=== PATIENT | male | born 1955 | race Caucasian/White ===

== ENCOUNTER 2018-06-26 07:38 | Day surgery (SDC) | payer OTHER ==
[~2018-06-26 07:38] MED LIST: PROPOFOL 200 MG/20 ML VIAL As Ordered
== END 2018-06-26 09:35 | disposition home or self-care (01) ==
LOC: M OPP 07:38
DX: Z12.11 Encounter for screening for malignant neoplasm of colon (principal); Z85.038 Personal history of other malignant neoplasm of large intestine; D12.3 Benign neoplasm of transverse colon; Z98.0 Intestinal bypass and anastomosis status; I10 Essential (primary) hypertension; E78.5 Hyperlipidemia, unspecified; E11.9 Type 2 diabetes mellitus without complications; Z85.46 Personal history of malignant neoplasm of prostate; Z87.891 Personal history of nicotine dependence; Z88.0 Allergy status to penicillin; Z88.1 Allergy status to other antibiotic agents; Z79.899 Other long term (current) drug therapy; Z79.82 Long term (current) use of aspirin; Z79.84 Long term (current) use of oral hypoglycemic drugs; Z80.1 Family history of malignant neoplasm of trachea, bronchus and lung
CPT/HCPCS: 45385

== ENCOUNTER 2018-08-29 06:50 | Day surgery (SDC) | payer OTHER ==
[~2018-08-29] VITALS: Ht 175.3 cm; Wt 73.0 kg
[~2018-08-29 06:50] MED LIST changes: +AMLO5TAB6 PO; +ASPI81TA85 PO; +ATOR40TA75 PO; +CETI10TA PO; +ERGO500014 PO; +GLIP10TA6 PO; +JANU50TA8 PO; +MICA40TA PO; -PROPOFOL 200 MG/20 ML VIAL As Ordered; +TELM1TAB37 PO
[2018-08-29] MEDS ORDERED: SIMETHICONE 40MG/0.6ML DROPS 30ML As Ordered ONE (07:02)
[2018-08-29] MEDS ORDERED: LIDOCAINE 2% INJ 100 MG/5 ML SDV (FOR ANES.) As Ordered ONE (07:30)
[2018-08-29] MEDS ORDERED: NS 1,000 ML IV ONE (07:30)
[2018-08-29] MEDS ORDERED: PROPOFOL 200 MG/20 ML VIAL As Ordered ONE (07:30)
--- NOTE | 2018-08-29 07:46 | ROOR ---
Patient Name: Blaze Guzman Procedure Date: 08/29/2018 7:27 AM Date of : 1955 Age: 63 Room: [facility] Gender: Male Note Status: Finalized Procedure: Colonoscopy Indications: High risk colon cancer surveillance: Personal history of colonic polyps, Personal history of malignant neoplasm of the colon Providers: Kris POTTER MD Referring MD: CIERA VANG MD Requesting Provider: Medicines: Monitored Anesthesia Care Complications: No immediate complications. Procedure: Pre-Anesthesia Assessment: - The heart rate, respiratory rate, oxygen saturations, blood pressure, adequacy of pulmonary ventilation, and response to care were monitored throughout the procedure. The Colonoscope was introduced through the anus and advanced to the cecum, identified by appendiceal orifice and ileocecal valve. The colonoscopy was performed with difficulty due to inadequate bowel prep. The patient tolerated the procedure well. The quality of the bowel preparation was poor. Findings: The perianal and digital rectal examinations were normal. Four semi-sessile polyps were found in the sigmoid colon, splenic flexure and ascending colon. The polyps were 4 to 6 mm in size. These polyps were removed with a cold snare. Resection and retrieval were complete. The colon is grossly normal without large tumors or obstructing lesions. Unable to perform adequate detail examination. Small lesions may have been missed. Impression: - Preparation of the colon was poor. The colon is grossly normal without large tumors or obstructing lesions. Unable to perform adequate detail examination. Small lesions may have been missed. - Four 4 to 6 mm polyps in the sigmoid colon, at the splenic flexure and in the ascending colon, removed with a cold snare. Resected and retrieved. Recommendation: - Repeat colonoscopy at the next available appointment because the bowel preparation was poor. - My office will call you within the next few days to reschedule a colonoscopy with alternate colon preparation. Kris Potter MD Kris POTTER MD 08/29/2018 7:45:51 AM This report has been signed electronically. Number of Addenda: 0 Note Initiated On: 08/29/2018 7:27 AM Estimated Blood Loss: Estimated blood loss: none.
[2018-08-29 08:05] VITALS: BP 104/56
== END 2018-08-29 08:16 | disposition home or self-care (01) ==
LOC: M OPP 06:50
PROVIDERS: ATTEND Internal Medicine Gastroenterology
DX: Z86.010 Personal history of colon polyps (principal); D12.5 Benign neoplasm of sigmoid colon; D12.3 Benign neoplasm of transverse colon; D12.2 Benign neoplasm of ascending colon; Z85.038 Personal history of other malignant neoplasm of large intestine; Z79.82 Long term (current) use of aspirin; Z79.899 Other long term (current) drug therapy; Z90.49 Acquired absence of other specified parts of digestive tract

== ENCOUNTER 2018-12-05 11:27 | Day surgery (SDC) | payer OTHER ==
[~2018-12-05] VITALS: Ht 175.3 cm; Wt 73.9 kg
[~2018-12-05 11:27] MED LIST changes: -ERGO500014 PO; +VITA500045 PO
[2018-12-05] MEDS ORDERED: NS 1,000 ML IV ONE (12:15)
[2018-12-05] MEDS ORDERED: PROPOFOL 200 MG/20 ML VIAL As Ordered ONE ×2 (13:00→13:02)
[2018-12-05] MEDS ORDERED: LIDOCAINE 2% INJ 100 MG/5 ML SDV (FOR ANES.) As Ordered ONE (13:00)
[2018-12-05] MEDS ORDERED: GLUCAGON FOR INJ 1 MG VIAL (J1610) As Ordered ONE (13:11)
--- NOTE | 2018-12-05 13:32 | ROOR ---
Patient Name: Blaze Guzman Procedure Date: 12/05/2018 12:43 PM Date of : 1955 Age: 63 Room: [facility] Gender: Male Note Status: Finalized Procedure: Colonoscopy Indications: High risk colon cancer surveillance: Personal history of colonic polyps, High risk colon cancer surveillance: Personal history of colon cancer Providers: Kris POTTER MD Referring MD: CIERA VANG MD Requesting Provider: Medicines: Monitored Anesthesia Care Complications: No immediate complications. Procedure: Pre-Anesthesia Assessment: - The heart rate, respiratory rate, oxygen saturations, blood pressure, adequacy of pulmonary ventilation, and response to care were monitored throughout the procedure. The Colonoscope was introduced through the anus and advanced to the terminal ileum, with identification of the appendiceal orifice and IC valve. The colonoscopy was performed without difficulty. The patient tolerated the procedure well. The quality of the bowel preparation was good. Findings: The perianal and digital rectal examinations were normal. Three sessile polyps were found in the ascending colon and cecum. The polyps were 4 to 5 mm in size. These polyps were removed with a cold snare. Resection and retrieval were complete. Three semi-pedunculated polyps were found in the sigmoid colon. The polyps were 5 to 10 mm in size. These polyps were removed with a hot snare. Resection and retrieval were complete. To prevent bleeding after the polypectomy, two hemostatic clips were successfully placed. There was no bleeding at the end of the procedure. Mild sigmoid diverticulosis and small internal hemorrhoids. There was evidence of a prior end-to-end colo-colonic anastomosis in the sigmoid colon. This was characterized by healthy appearing mucosa. Impression: - Three 4 to 5 mm polyps in the ascending colon and in the cecum, removed with a cold snare. Resected and retrieved. - Three 5 to 10 mm polyps in the sigmoid colon, removed with a hot snare. Resected and retrieved. Clips were placed. - Mild sigmoid diverticulosis and small internal hemorrhoids. - End-to-end colo-colonic anastomosis, characterized by healthy appearing mucosa. Recommendation: - Repeat colonoscopy in 3 years for surveillance. - This time (3rd attempt) the colon prep was good. For your next colonoscopy we will use the same regimen. Kris Potter MD Kris POTTER MD 12/05/2018 1:31:39 PM Electronically signed by Kris POTTER MD Number of Addenda: 0 Note Initiated On: 12/05/2018 12:43 PM Estimated Blood Loss: Estimated blood loss: none.
[2018-12-05 14:02] VITALS: BP 151/70
== END 2018-12-05 14:13 | disposition home or self-care (01) ==
LOC: M OPP 11:27
PROVIDERS: ATTEND Internal Medicine Gastroenterology
DX: Z86.010 Personal history of colon polyps (principal); Z85.038 Personal history of other malignant neoplasm of large intestine; D12.2 Benign neoplasm of ascending colon; D12.0 Benign neoplasm of cecum; D12.5 Benign neoplasm of sigmoid colon; Z98.0 Intestinal bypass and anastomosis status; K57.30 Diverticulosis of large intestine without perforation or abscess without bleeding; K64.8 Other hemorrhoids; Z79.899 Other long term (current) drug therapy; Z88.0 Allergy status to penicillin; Z87.891 Personal history of nicotine dependence; Z08 Encounter for follow-up examination after completed treatment for malignant neoplasm
CPT/HCPCS: 45385; 88305; J1610

== ENCOUNTER 2019-10-29 06:22 | Inpatient (IN) | payer OTHER ==
[~2019-10-29] VITALS: Ht 175.3 cm; Wt 69.0 kg
[2019-10-29] MEDS ORDERED: NS 500 ML IV ONE (07:15)
[2019-10-29 07:39] LABS: BASO # 0.1 10^3/uL (0.0-0.2); BASO % 0.7 % (0.0-1.0); EOS # 0.5 10^3/uL (0.0-0.5); EOS % 4.7 % (0.0-3.0); HEMATOCRIT 42.1 % (42.0-52.0); HEMOGLOBIN 13.4 g/dl (13.5-17.5); LYMPH # 1.8 10^3/uL (1.5-5.0); LYMPH % 18.7 % (24.0-44.0); MEAN CORPUSCULAR HEMOGLOBIN 27.2 pg (27.0-33.0); MEAN CORPUSCULAR HGB CONC 31.8 g/dl (32.0-36.5); MEAN CORPUSCULAR VOLUME 85.4 fl (80.0-96.0); MONO # 0.7 10^3/uL (0.0-0.8); MONO % 6.9 % (0.0-5.0); NEUTROPHILS # 6.6 10^3/uL (1.5-8.5); NEUTROPHILS % 68.6 % (36.0-66.0); PLATELET COUNT, AUTOMATED 248 10^3/uL (150-450); RED BLOOD COUNT 4.93 10^6/uL (4.30-6.10); WHITE BLOOD COUNT 9.6 10^3/uL (4.0-10.0)
--- NOTE | 2019-10-29 08:31 | REP ---
Clinical: Facial droop and altered mental status . Comparison: None . Findings: The ventricles, sulci, and cisterns are normal in position and appearance. Stevens-white differentiation is maintained. No acute intracranial hemorrhage, mass/mass effect, pathology or trauma/injury. No evidence for acute infarction. No extra-axial fluid collection. Calvarium is intact. Paranasal sinuses and mastoid air cells are clear. Impression: Normal noncontrast head CT. No evidence for acute intracranial pathology or trauma/injury. Electronically Signed by Matt La MD 10/29/2019 08:23 A
[2019-10-29] MEDS: KCL 10MEQ IN D5/0.45NS 1000ML 1,000 ML IV SCH ×2 (09:56→21:08)
[2019-10-29 09:58] LABS: HEMOGLOBIN A1c 8.4 %
--- NOTE | 2019-10-29 10:49 | HPEPDOC ---
[facility] Medical History & Physical Date of Admission Oct 29, 2019 Date of Service: Oct 29, 2019 History and Physical CHIEF COMPLAINT: altered mental status, facial droop HISTORY OF PRESENT ILLNESS: 64 yo male brought in by EMS for altered mental status, facial droop. woke up this morning and heard choking sounds, went to investigate, and noted her had a left facial droop, with altered mental status. EMS was called, and patient was found to by hypoglycemic. Patient states he skipped dinner last night, went to sleep, and woke up to find an IV in his arm, with EMS around his bed. No other recollection. He denied any other symptoms. He states he is non-compliant with dietary restrictions, and it is not clear if he is compliant with medications. PAST MEDICAL HISTORY: #HTN #DM #prostate CA s/p resection - 2007 - at [facility] #colon CA s/p resection - 2004 - recent colonoscopy 2018 Dr. Potter was WNL as per patient PAST SURGICAL HISTORY: #prostate CA s/p resection - 2007 - at [facility] #colon CA s/p resection - 2004 - recent colonoscopy 2018 Dr. Potter was WNL as per patient ALLERGIES: Please see below. REVIEW OF SYSTEMS: Negative except as per H&P. HOME MEDICATIONS: Please see below. PHYSICAL EXAMINATION: VITAL SIGNS: See below General: NAD, lying comfortably in bed HEENT: NC/AT, EOMI, PERRL Lungs: CTA B/L Heart: +S1S2, RRR Abd: soft, NT, +BS Ext: no edema Neuro: no gross focal deficits, sensation intact throughout strength 5/5 LABORATORY DATA: See below. MICROBIOLOGY: Please see below. ASSESSMENT: 64 yo male with PMHx of prostate/colon cancer, HTN, DM for AMS and left facial droop, found to be hypoglycemic, symptoms resolved upon presentation to ED. #hypoglycemia - continue with D5 for now - FS ac/hs #AMS - likely secondary to hypoglycemia #focal neuro deficits - r/o CVA - MRI/MRA brain pending - echo pending - check lipid panel - neuro c/s #HTN - 2 gram sodium diet, continue home meds including ARB #DM - as above #DVT prophylaxis Vital Signs Vital Signs Date Time Temp Pulse Resp B/P (MAP) Pulse Ox O2 Delivery O2 Flow Rate FiO2 10/29/19 07:35 96.5 87 18 123/68 (86) 97 Room Air Laboratory Data Labs 24H Laboratory Tests 2 10/29/19 06:40: Bedside Glucose (Misc Panel) 148H 10/29/19 07:30: Estimated Mean Plasma Glucose 194H, Hemoglobin A1c 8.4 10/29/19 07:31: Immature Granulocyte % (Auto) 0.4, Neutrophils (%) (Auto) 68.6H, Lymphocytes (%) (Auto) 18.7L, Monocytes (%) (Auto) 6.9H, Eosinophils (%) (Auto) 4.7H, Basophils (%) (Auto) 0.7, Neutrophils # (Auto) 6.6, Lymphocytes # (Auto) 1.8, Monocytes # (Auto) 0.7, Eosinophils # (Auto) 0.5, Basophils # (Auto) 0.1, Nucleated Red Blo od Cells % (auto) 0.0 10/29/19 07:32: POC Glucose (Misc Panel) 116H, POC Sodium (Misc Panel) 142, POC Potassium (Misc Panel) 3.8, POC Chloride (Misc Panel) 104, POC Total CO2 (Misc Panel) 25.0, POC Blood Urea Nitrogen (Misc Panel 10, POC Ionized Calcium (Misc Panel) 4.8, POC Creatinine (Misc Panel) 1.0, POC Hematocrit (Misc Panel) 41.0 10/29/19 08:23: Bedside Glucose (Misc Panel) 68L 10/29/19 09:20: Bedside Glucose (Misc Panel) 59L 10/29/19 10:22: Bedside Glucose (Misc Panel) 89 CBC/BMP Laboratory Tests 10/29/19 07:31 Home Medications Scheduled Amlodipine Besylate (Amlodipine Besylate) 5 Mg Tab, 5 MG PO QHS Aspirin (Aspir 81) 81 Mg Tab, 81 MG PO QHS for pain Atorvastatin Calcium (Atorvastatin Calcium) 40 Mg Tab, 40 MG PO QHS Cetirizine HCl (Cetirizine HCl) 10 Mg Tab, 10 MG PO QHS Ergocalciferol (Vitamin D2) (Vitamin D2) 50,000 Units Cap, 50,000 UNITS PO QWEEK saturdays Glipizide (Glipizide) 10 Mg Tab, 40 MG PO QHS change in dose from 10mg xl daily 09/29/19 Sitagliptin Phos/Metformin HCl (Janumet 50-1,000 mg Tablet) 1 Tab Tab, 1 TAB PO BID Telmisartan (Telmisartan) 80 Mg Tab, 80 MG PO QHS Valacyclovir HCl (Valtrex) 500 Mg Tablet, 500 MG PO DAILY Allergies Coded Allergies: Penicillins (Verified Allergy, Intermediate, RASH, 12/03/18) erythromycin base (Verified Adverse Reaction, Mild, N/V, 12/03/18) A-FIB/CHADSVASC A-FIB History Current/History of A-Fib/PAF?: No IJM BECKER MD Oct 29, 2019 10:49
[2019-10-29] MEDS ORDERED: VITA50005 PO (10:58)
[2019-10-29] MEDS ORDERED: VALT500T PO (11:01)
[2019-10-29 11:40] LABS: ALBUMIN 3.6 GM/DL (3.2-5.2); ALT/SGPT 28 U/L (12-78); BILIRUBIN,TOTAL 0.7 MG/DL (0.2-1.0); BLOOD UREA NITROGEN 11 MG/DL (7-18); CALCIUM LEVEL 9.4 MG/DL (8.8-10.2); CARBON DIOXIDE LEVEL 29 MEQ/L (21-32); CHLORIDE LEVEL 108 MEQ/L (98-107); CREATININE FOR GFR 1.15 MG/DL (0.70-1.30); GLOMERULAR FILTRATION RATE > 60.0 (>49); GLUCOSE, FASTING 110 MG/DL (70-100); POTASSIUM SERUM 3.7 MEQ/L (3.5-5.1); SODIUM LEVEL 140 MEQ/L (136-145); TOTAL PROTEIN 7.7 GM/DL (6.4-8.2)
[2019-10-29 13:22] VITALS: BP 134/76
[2019-10-29] MEDS ORDERED: ASPIRIN 81 MG ENTERIC TAB PO STA (14:21)
[2019-10-29] MEDS ORDERED: ATORVASTATIN 20 MG TAB PO ONE (14:30)
[2019-10-29 15:14] LABS: CK-MB VALUE MASS < 1.0 NG/ML (<3.6); CPK CREATINE PHOSPHOKINASE 88 U/L (39-308); MB/CK RELATIVE INDEX 1.14 (< OR =4); TROPONIN I < 0.02 NG/ML (< 0.10)
--- NOTE | 2019-10-29 15:41 | REP ---
Clinical: Transient ischemic attack . Technique: Stevens scale and color Doppler evaluation using linear high frequency transducer Findings: Two-dimensional stevens scale and color images demonstrate mild bilateral atheromatous plaquing with normal laminar flow and no appreciable narrowing. Color Doppler interrogation demonstrates normal arterial wave patterns and velocities with significant spectral broadening. Normal flow direction is appreciated in the bilateral vertebral arteries. RIGHT (cm/s) LEFT (cm/s) ICA peak systolic velocity 65.9 76.7 ICA diastolic velocity 19.3 24.6 ECA peak systolic velocity 75.1 70.8 CCA peak systolic velocity 95.7 98.8 ICA/CCA ratio 1.1 1.3 Impression: No hemodynamically significant areas of narrowing or stenosis appreciated. Based on set standards narrowing falls within the less than 50% range. Electronically Signed by Matt La MD 10/29/2019 03:32 P
[2019-10-29 16:00] VITALS: BP 143/71
[2019-10-29] MEDS: HEPARIN SOD (PORCINE) 5000 UNITS/ML VIAL (J1644 PER 1000UNITS) SC SCH ×2 (16:30→21:08)
--- NOTE | 2019-10-29 16:36 | REP ---
MRI brain without contrast: History: CVA. Comparison: Head CT study is from earlier this date. Technique: Axial and sagittal imaging planes are utilized for T1 and T2-weighted scans. Sequences include spin-echo, fast spin echo, FLAIR, and diffusion weighted sequences. MRI findings: No bony calvarial lesion is seen. Craniocervical junction and upper cervical cord are normal in appearance. There is mucosal thickening affecting the ethmoid air cells bilaterally. Mild mucosal thickening is seen affecting the maxillary sinuses bilaterally. There is no evidence of intracranial hemorrhage. No acute infarction is seen on diffusion weighted scans. On FLAIR and turbo spin echo T2-weighted scans there are some periventricular T2 hyperintense areas consistent with small vessel atherosclerotic changes. There is a high T2 low T1 signal intensity area in the right basal ganglia which most likely reflects a dilated perivascular space. An old lacunar infarct in the basal ganglia on the right is a possibility. This does not appear to be acute. Exam is otherwise unremarkable. Impression: 1 cm low T1 high T2 signal intensity focus in the right basal ganglia most consistent with normal variant dilated perivascular space versus less likely old lacunar infarct right basal ganglia. No acute infarction is seen. No evidence of hemorrhage is seen. Mild small vessel changes. Otherwise negative. Electronically Signed by Kevon Alvarez MD 10/29/2019 05:06 P
--- NOTE | 2019-10-29 16:38 | REP ---
MRI brain without contrast: History: CVA. Technique: 3-D [id number] MR angiography of the brain is acquired in the usual fashion and maximal intensity projection images were generated in rotational format about the vertical and horizontal axes. In addition, source axial T1-weighted images are viewed in cine mode. MR angiographic findings: The left distal vertebral artery is dominant and unremarkable. Basilar artery is normal in appearance. The right distal vertebral artery is quite small and the terminate in the pica. This is a normal variant. Posterior cerebral and superior cerebellar vessels are normal and symmetric. There is a persistent origin of the left posterior cerebral artery also a normal variant of no clinical significance. The distal internal carotid arteries are unremarkable. There is no evidence of gonzalez aneurysm. No arteriovenous malformation is seen. Anterior middle cerebral arteries are unremarkable. Impression: Persistent origin left posterior cerebral artery. Left dominant vertebral arteries. Otherwise unremarkable MR angiography the brain. Electronically Signed by Kevon Alvarez MD 10/29/2019 05:07 P
[2019-10-29 17:24] LABS: INR 1.03; PROTHROMBIN TIME 13.2 SECONDS (11.8-14.0)
[2019-10-29 17:25] LABS: PARTIAL THROMBOPLASTIN TIME 35.4 SECONDS (25.0-38.4)
[2019-10-29 20:00] VITALS: BP 122/71
--- NOTE | 2019-10-29 20:20 | ECHO ---
DATE OF PROCEDURE: 10/29/2019 PATIENT LOCATION: Room 3213 REFERRING PROVIDER: Dr. Angelito Taylor REASON FOR THE ECHOCARDIOGRAM: CVA. 2D MEASUREMENTS: IVS: 1.2 cm LV: 6.0 cm LVPW: 1.2 cm LA: 3.6 cm Aorta: 3.3 CM IVC: 1.98 cm DOPPLER MEASUREMENTS: Peak velocity across the aortic valve: 1.4 meters per second. Peak velocity across the LVOT: 1.1 meters per second. Mitral E: 0.70, Mitral A: 0.93 with a ratio of 0.8. 2D COMMENTS: 1. Mildly dilated left ventricle with normal left ventricular wall thickness but with a severely depressed global left ventricular systolic function. The entire anteroseptum and apex are both akinetic and dyskinetic. Otherwise there was mild global hypokinesis. The myocardium seems to be abbie at the level of the inferior wall and the lateral wall. The estimated global left ventricular systolic function is 25-30%. 2. Normal left atrium. Normal right atrium and right ventricle. 3. The atrial septum appeared to be normal without evidence of defect or shunt. 4. Normal aortic root. 5. Trace pericardial effusion noted, no evidence of cardiac tamponade. 6. Mildly calcified aortic valve with normal leaflet excursion. Mildly calcified mitral annulus with normal anterior mitral valve leaflet motion. Normal tricuspid valve and pulmonic valve. The proximal pulmonary artery branches were not well visualized. 7. The inferior vena cava is borderline enlarged, central venous pressure might be elevated. DOPPLER: It detects mild to moderate mitral regurgitation. Assessment of the left ventricular diastolic function revealed impaired relaxation across the mitral valve leaflets and mitral valve annulus. IMPRESSION: 1. Severe global left ventricular systolic dysfunction with regional wall motion abnormalities consistent with probably coronary artery disease. 2. Aortic valve sclerosis without stenosis or aortic regurgitation. 3. Mitral annulus calcification with mild to moderate mitral regurgitation. 4. Trace pericardial effusion, no evidence of cardiac tamponade. [facility]
[2019-10-29 21:29] LABS: CK-MB VALUE MASS < 1.0 NG/ML (<3.6); CPK CREATINE PHOSPHOKINASE 85 U/L (39-308); MB/CK RELATIVE INDEX 1.18 (< OR =4); TROPONIN I 0.03 NG/ML (< 0.10)
--- NOTE | 2019-10-29 22:00 | CR ---
DATE OF CONSULTATION: 10/29/2019 REFERRING PHYSICIAN: Dr. Angelito Taylor REASON FOR CONSULTATION: Altered mental status, left-sided facial droop and slurred speech. HISTORY OF PRESENT ILLNESS: The patient is a 64-year-old man who was brought to [facility] due to altered mental status, left-sided facial droop. The patient's woke up this morning and heard choking sounds. The patient's went to check up on her and found that he had left-sided facial droop and had altered mental status. He was not responding well. The patient had skipped dinner last night. He went to sleep and woke up to find emergency medical services (EMS) around his bedside with IV in his arm. His blood sugar was low, 47. He had no recollection. The patient denies any headache, neck, back pain. He had no numbness or weakness of his arms or legs. PAST MEDICAL HISTORY: Hypertension, diabetes, prostate cancer, status post resection 2007, colon cancer status post resection 2004. SOCIAL HISTORY: He denies smoking, alcohol or illicit drugs. FAMILY HISTORY: Unremarkable and noncontributory. REVIEW OF SYSTEMS: All systems were reviewed and found to be noncontributory except as mentioned in history of present illness. ALLERGIES: PENICILLIN, ERYTHROMYCIN. PHYSICAL EXAMINATION: Temperature 98.5, pulse 83, respiratory rate 18, blood pressure 143/71, 98% saturation on room air. Heart: Regular rate and rhythm. Lungs: Clear to auscultation. Abdomen: Soft, nontender, nondistended. No pedal edema. No musculoskeletal abnormalities. No rash. No signs of meningeal irritation. The patient is awake, alert, oriented to place, person and time. Normal speech comprehension and repetition. Extraocular muscles are intact. No facial weakness. Tongue and uvula are midline. 5/5 strength in all four extremities. Deep tendon reflexes are 1+ in arms and knees and absent at ankles. He has decreased cold pinprick vibration sensation in his feet. Gait is normal. There is no nystagmus. There is no sign of meningeal irritation. DIAGNOSTIC STUDIES: MRI scan of brain showed 1 cm right basal ganglia perivascular space or old lacunar stroke. MRA brain was normal. Carotid ultrasound showed less than 50% bilateral carotid stenosis. ASSESSMENT: 1. Severe hypoglycemia causing altered mental status and left facial droop, which improved. 2. Transient ischemic attack (TIA) would be less likely in the presence of hypoglycemia. 3. Diabetes and hypertension. PLAN: 1. Echocardiogram. 2. Aspirin 81 mg by mouth daily. 3. Lipitor 40 mg by mouth daily. 4. Keep long-term blood pressure below 130/80. HOME MEDICATIONS: Amlodipine 5 mg by mouth daily, aspirin 81 mg by mouth daily, Lipitor 40 mg by mouth daily, Zyrtec 10 mg by mouth daily, vitamin D2 50,000 units once a week, glipizide 10 mg by mouth daily, Janumet mg by mouth twice a day, telmisartan 80 mg by mouth daily.
--- NOTE | 2019-10-29 22:30 | ECGEPIP ---
[facility] Test Date: 2019-10-29 Pat Name: LUZ DUNCAN Department: Room: [place] [address] Gender: Male Patient Scheduling Coordinator: PRATEEK : 1955 Requested By: FERCHO MADDEN Order Number: [id number] Reading MD: Kris Goetz Measurements Intervals Deale Rate: 75 P: 72 MD: 140 QRS: -15 QRSD: 170 T: 149 QT: 442 QTc: 494 Interpretive Statements SINUS RHYTHM LEFT BUNDLE BRANCH BLOCK No prior ECG available for comparison at the time of interpretation. Electronically Signed on 10-29-2019 22:30:50 EST by Kris Goetz
[2019-10-29 23:59] VITALS: BP 130/78
[2019-10-30 01:59] LABS: CK-MB VALUE MASS < 1.0 NG/ML (<3.6); CPK CREATINE PHOSPHOKINASE 73 U/L (39-308); MB/CK RELATIVE INDEX 1.37 (< OR =4); TROPONIN I < 0.02 NG/ML (< 0.10)
[2019-10-30 04:00] VITALS: BP 127/75
[2019-10-30 05:30] LABS: HEMOGLOBIN 12.8 g/dl (13.5-17.5); MEAN CORPUSCULAR HEMOGLOBIN 27.6 pg (27.0-33.0); MEAN CORPUSCULAR VOLUME 86.2 fl (80.0-96.0); PLATELET COUNT, AUTOMATED 208 10^3/uL (150-450); RED BLOOD COUNT 4.64 10^6/uL (4.30-6.10); WHITE BLOOD COUNT 6.7 10^3/uL (4.0-10.0)
[2019-10-30] MEDS: HEPARIN SOD (PORCINE) 5000 UNITS/ML VIAL (J1644 PER 1000UNITS) SC SCH ×3 (05:34→21:33)
[2019-10-30] MEDS: KCL 10MEQ IN D5/0.45NS 1000ML 1,000 ML IV SCH ×2 (05:35→18:13)
[2019-10-30 05:57] LABS: BLOOD UREA NITROGEN 12 MG/DL (7-18); CALCIUM LEVEL 8.6 MG/DL (8.8-10.2); CARBON DIOXIDE LEVEL 29 MEQ/L (21-32); CHLORIDE LEVEL 110 MEQ/L (98-107); CHOLESTEROL LEVEL 105 MG/DL (<200); CHOLESTEROL RISK RATIO 3.281 (<5); CK-MB VALUE MASS < 1.0 NG/ML (<3.6); CPK CREATINE PHOSPHOKINASE 75 U/L (39-308); CREATININE FOR GFR 1.03 MG/DL (0.70-1.30); GLOMERULAR FILTRATION RATE > 60.0 (>49); GLUCOSE, FASTING 125 MG/DL (70-100); HDL CHOLESTEROL 32 MG/DL (>40); LDL CHOLESTEROL 57 MG/DL (<100); MB/CK RELATIVE INDEX 1.33 (< OR =4); NON-HDL-C 73 MG/DL; POTASSIUM SERUM 3.8 MEQ/L (3.5-5.1); SODIUM LEVEL 142 MEQ/L (136-145); TRIGLYCERIDES LEVEL 80 MG/DL (<150); TROPONIN I < 0.02 NG/ML (< 0.10)
[2019-10-30 07:59] VITALS: BP 143/84
[2019-10-30] MEDS: ATORVASTATIN 20 MG TAB PO SCH (08:54)
[2019-10-30] MEDS ORDERED: ATORVASTATIN 20 MG TAB PO SCH (09:00)
[2019-10-30] MEDS: valACYclovir HCL 500 MG TAB PO SCH (09:00)
[2019-10-30 11:36] VITALS: BP 149/75
[2019-10-30 16:33] VITALS: BP 138/74
--- NOTE | 2019-10-30 18:02 | IPNPDOC ---
Text Note Date of Service The patient was seen on 10/30/19. NOTE S: Pt examined at bedside. Has no complaints. Has not had any neurologic symptoms since admission. States he feels well denies any nausea, vomiting, chest pain, events overnight. However on telemetry noted to have multiple pro longed nonsustained beats of V. tach-asymptomatic. Has no complaints this morning. PE: Vitals: see below General: NAD, A&Ox3, resting comfortably HEENT: NCAT, EOMI, anicteric sclera, MMM CV: RRR, no murmurs or clicks or rub. No edema RESP: CTAB, no w/r/r/ ABD: soft, NT, ND. Benign EXTREMITIES: 2+ radial pulses b/l, able to move all extremities MSK: 5/5 strength upper and lower extremities bilaterally NEURO: no focal deficits or acute changes. Motor and sensation intact throughout A/P: 55-yo male presented for slurred speech, left-sided facial droop and left arm and leg weakness. No prior cardiac or neurologic history. At time of EMS arrival, was found to be hypoglycemic at 47. Is a diabetic at baseline and had apparently taken all his medications, but skipped dinner. He had no other complaints. Episode was short-lived. He has no recurrent symptoms and has been well since. 1. Newly diagnosed CAD Per echo: Severe global left triple systolic dysfunction with EF 25-30% and regional wall motion abnormality consistent with probably artery artery disease Concern for arrhythmia -continue monitoring on telemetry Discussed with patient. He is asymptomatic. May possibly need LifeVest Cardiac rehabilitation and Cardiology consulted. Appreciate Dr. Valdivia's input 2. Slurred speech with left-sided facial droop and left arm and leg weakness Hasn't had no recurrent episodes since admission May be 2/2 hypoglycemic episode with blood sugars in the 40s Neurology consulted, appreciate input: also agrees it may be 2/2 hypoglycemia, less likely TIA Head CT, brain MRI/MRA and carotid ultrasound unremarkable Per Neuro: continue aspirin 81 mg and Lipitor 40 mg. Keep bp under 130/80 Cardiac markers negative X3. Lipid panel at goal. Echo ordered-less likely cardiac 3. Hypoglycemia Patient missed a meal at home and took his regular diabetic meds No recurrent hypoglycemic episodes s/p D5 IVF hydration Hypoglycemic protocol in place 4. Hypertension Controlled on current regimen NIDDM 2 Hold home meds given recent hypoglycemic episodes Blood sugars acceptable Hypoglycemic protocol DVT ppx: heparin sc DISPO: pending Cardiology input, possible LifeVest prior to discharge. Likely d/c home 24-48 hrs. VS,Fishbone, I+O VS, Fishbone, I+O Laboratory Tests 10/30/19 04:59 Vital Signs Date Time Temp Pulse Resp B/P (MAP) Pulse Ox O2 Delivery O2 Flow Rate FiO2 10/30/19 16:33 98.4 82 18 138/74 (95) 97 Room Air I&O- Last 24 Hours up to 6 AM 10/30/19 06:00 Intake Total 2000 ml Output Total 1425 ml Balance 575 ml GME ATTESTATION GME ATTESTATION My faculty preceptor for this patient encounter was physically present during the encounter and was fully available. All aspects of the patient interview, examination, medical decision making process, and medical care plan development were reviewed and approved by the faculty preceptor. The faculty preceptor is aware and concurs with the plan as stated in the body of this note and will attest to such by his/her cosignature. FERCHO MADDEN DO Oct 30, 2019 18:02
[2019-10-30 20:00] VITALS: BP 145/70
[2019-10-30] MEDS ORDERED: amLODIPine 5 MG TAB PO SCH (21:00)
[2019-10-30] MEDS ORDERED: TELMISARTAN 20 MG TAB PO SCH (21:00)
[2019-10-30] MEDS: CARVedilol 3.125 MG TAB PO SCH (21:33)
[2019-10-30] MEDS: ASPIRIN 81 MG ENTERIC TAB PO SCH (21:33)
[2019-10-30] MEDS: CETIRIZINE (ZyrTEC) 10 MG TAB PO SCH (21:33)
[2019-10-30] MEDS: ENTRESTO 24-26MG TABLET (SACUBITRIL/VALSARTAN) PO SCH (21:34)
[2019-10-30 23:59] VITALS: BP 121/62
[2019-10-31] MEDS: KCL 10MEQ IN D5/0.45NS 1000ML 1,000 ML IV SCH (03:45)
[2019-10-31 04:00] VITALS: BP 125/69
[2019-10-31] MEDS: HEPARIN SOD (PORCINE) 5000 UNITS/ML VIAL (J1644 PER 1000UNITS) SC SCH ×3 (06:07→21:41)
[2019-10-31 06:27] LABS: NT-PRO BNP 1797 PG/ML (<125)
[2019-10-31 08:00] VITALS: BP 123/68
[2019-10-31] MEDS: valACYclovir HCL 500 MG TAB PO SCH (09:00)
--- NOTE | 2019-10-31 09:06 | CR ---
DATE OF CONSULTATION: 10/30/2019 AGE: 64 REFERRING PROVIDER: Dr. Angelito Taylor REASON FOR CONSULTATION: Cardiomyopathy. HISTORY OF PRESENT ILLNESS: 64-year-old male was coming back to town from [place] where he was working and he is being treated for hypertension, hyperlipidemia, and diabetes mellitus. He has no prior cardiac workup but his doctor in [place] recommended one prior to moving to [place]. This was never organized. On the day of admission on 10/29/2019, his had noticed that he was not breathing well while in bed and he was drooling. Emergency medical services (EMS) was called and upon arrival, he was found to be markedly hypoglycemic. IV access was done and he was treated with glucose and then brought to the emergency room for further evaluation. Determine on admission was that he had a stroke. The patient stated he did not know when the EMS arrived and inserted the IV access. There was however no chest pain, shortness of breath, palpitations, and he denies any pedal edema. According to his , he has not been himself lately. At times, when he goes up stairs, he had stops to rest but has never complained of chest pain or shortness of breath. He has not been sick this winter but for one episode of upper respiratory tract infection that lasted about a week. PAST MEDICAL HISTORY: As mentioned above, positive for hypertension, diabetes mellitus, hyperlipidemia. He also has a history of prostate and colon cancer for which he had surgery. There is no prior history of coronary artery disease, cardiomyopathy, known left bundle branch block, kidney disease, thyroid disorders, lung disease, transient ischemic attack/CVA, atrial fibrillation / flutter, significant valvular heart disease. There is no history of sudden cardiac . PAST SURGICAL HISTORY: Positive for a prostate cancer surgery in 2007 at [facility] in [place] and also surgery for colon cancer in 2004. Recent colonoscopy in 2019 was normal, Dr. Potter. FAMILY HISTORY: Noncontributory. SOCIAL HISTORY: The patient lives with his and he has been retired from the [employer]. He also has worked with [employer] in [place]. He does not smoke. He drinks rarely. There is no history of illicit drugs. ALLERGIES: No known drug allergies, he has intolerance to ERYTHROMYCIN, PENICILLIN -- reaction unknown. CODE STATUS: The patient is a FULL CODE. CURRENT MEDICATIONS: - amlodipine 5 mg p.o. daily - aspirin 81 mg p.o. daily - atorvastatin 40 mg p.o. daily - cetirizine 10 mg p.o. daily and as needed - vitamin D 42951 units weekly p.o. - glipizide 10 mg tablets - Sinemet 50 / 1000 mg p.o. twice a day - Micardis - valacyclovir 500 mg p.o. daily PHYSICAL EXAMINATION The patient is alert and oriented, in no acute distress at rest. Vital signs when I saw him revealed a blood pressure of 145/70 with a pulse of 80, respiration 18, and his maximum temperature was 97.9 with an oxygen saturation of 95% on room air. HEENT: Normocephalic, atraumatic. Nose and throat unremarkable. Fundi examination was not done. Neck is supple and no jugular venous distention (JVD) appreciated. No carotid bruits. Lungs: Did not reveal any wheezing or crackles. Heart: Examination revealed regular heart sounds without gallops. The PMI is displaced inferiorly and laterally. There is no rub. Abdomen is soft and nontender, bowel sounds positive. No bruits. Extremities: Reveal no pedal edema. Peripheral pulses, dorsalis pedis +2 and equal. Neurologic: Examination is negative for focal deficit. LABORATORY DATA: Done today revealed a WBC of 6.7, hemoglobin 12.8, hematocrit 40.0 and platelet 108,000. Next BMP revealed a sodium of 142, potassium 3.8, chloride 110, CO2 29, BUN 12, creatinine 1.03, GFR more than 60, fasting glucose 125 and calcium 8.6. Serum troponin has been negative. Lipid profile revealed a total cholesterol of 105, LDL 57, HDL 32, triglycerides 80. Liver enzymes revealed a total bilirubin of 0.7, AST 23, ALT 28, alkaline phosphatase 97, total protein 7.7, albumin 3.6. PT on admission was 13.2 with an INR of 1.03 and PTT of 35.4. Head CT on admission revealed no evidence of acute intracranial pathology. CT of the brain without any contrast revealed no evidence of bleeding but small vessel changes, otherwise unremarkable. No acute infarct. Carotid Doppler done on admission 10/29/2019 revealed no hemodynamically significant stenosis in the internal carotid arteries. Echocardiogram on 10/29/2019 revealed a left ventricular ejection fraction estimated at 25-30% and the anterior septum was markedly hypokinetic and also dyskinetic. Otherwise, there was mild global hypokinesis. Trace pericardial effusion was noted, as well as mild to moderate mitral regurgitation, aortic valve sclerosis. Echocardiogram on 10/29/2019 at 15:14:19 revealed sinus rhythm with underlying left bundle branch block. No prior for comparison. Cardiomyopathy with underlying left bundle-branch block in this 64-year-old man with history of hypertension, hyperlipidemia, diabetes mellitus, but denies any chest pain. He is a former smoker. He appears to be compensated. He is not retaining fluids. His medications were reviewed and I have discontinued the Micardis and decreased the amlodipine. He was started on carvedilol, as well as Entresto. He will be monitored. We have discussed about the LifeVest and he is willing to wait until he gets it on Saturday or Saturday. As outpatient, we will proceed with a pharmacological nuclear stress test or a cardiac catheterization. He probably will be going home this coming Saturday or Saturday and he will be seen in the office in the first week of October. It was a pleasure to participate the care of Mr. Blaze Guzman for his underlying cardiac condition. The case was discussed with the hospitalist. I have discussed also with him about his diagnosis and a treatment plan. His also is aware. Dr. Moon will see him over the weekend as needed. Please do not hesitate to call me if any questions. DORON
[2019-10-31 09:12] LABS: HEMATOCRIT 41.5 % (42.0-52.0); HEMOGLOBIN 13.3 g/dl (13.5-17.5); MEAN CORPUSCULAR HEMOGLOBIN 27.2 pg (27.0-33.0); MEAN CORPUSCULAR VOLUME 84.9 fl (80.0-96.0); PLATELET COUNT, AUTOMATED 228 10^3/uL (150-450); RED BLOOD COUNT 4.89 10^6/uL (4.30-6.10); WHITE BLOOD COUNT 6.9 10^3/uL (4.0-10.0)
[2019-10-31 09:16] LABS: BLOOD UREA NITROGEN 13 MG/DL (7-18); CARBON DIOXIDE LEVEL 25 MEQ/L (21-32); CHLORIDE LEVEL 110 MEQ/L (98-107); CREATININE FOR GFR 0.94 MG/DL (0.70-1.30); GLOMERULAR FILTRATION RATE > 60.0 (>49); GLUCOSE, FASTING 162 MG/DL (70-100); POTASSIUM SERUM 3.9 MEQ/L (3.5-5.1); SODIUM LEVEL 141 MEQ/L (136-145)
[2019-10-31] MEDS: ENTRESTO 24-26MG TABLET (SACUBITRIL/VALSARTAN) PO SCH ×2 (09:18→21:40)
[2019-10-31] MEDS: ATORVASTATIN 20 MG TAB PO SCH (09:18)
[2019-10-31] MEDS: CARVedilol 3.125 MG TAB PO SCH ×2 (09:19→21:40)
[2019-10-31] MEDS ORDERED: SLF 3 ML SYR IV PRN (11:15)
[2019-10-31 12:00] VITALS: BP 137/79
--- NOTE | 2019-10-31 13:43 | IPNPDOC ---
Text Note Date of Service The patient was seen on 10/31/19. NOTE S: Pt examined at bedside. Continues to feel well without complaints. No issues overnight. He was seen by cardiology and started on expressed incorporating which she is tolerating well. No acute events on telemetry. PE: Vitals: see below General: NAD, A&Ox3, resting comfortably HEENT: NCAT, EOMI, anicteric sclera, MMM CV: RRR, no murmurs or clicks or rub. No edema RESP: CTAB, no w/r/r/ ABD: soft, NT, ND. Benign EXTREMITIES: 2+ radial pulses b/l, able to move all extremities MSK: 5/5 strength upper and lower extremities bilaterally NEURO: no focal deficits or acute changes. Motor and sensation intact throughout A/P: 55-yo male presented for slurred speech, left-sided facial droop and left arm and leg weakness. No prior cardiac or neurologic history. At time of EMS arrival, was found to be hypoglycemic at 47. Is a diabetic at baseline and had apparently taken all his medications, but skipped dinner. He had no other complaints. Episode was short-lived. He has no recurrent symptoms and has been well since. Suspicion is that it was likely due to hypoglycemia. Also found incidentally to have a newly-diagnosed severe cardiomyopathy with a reduced EF of 25-30%, asymptomatic and otherwise doing well. 1. Newly diagnosed CAD Per echo: Severe global left ventricular systolic dysfunction with EF 25-30% and regional wall motion abnormality consistent with probably coronary artery disease Concern for arrhythmia -continue monitoring on telemetry in PCU Cardiac rehabilitation and Cardiology consulted. Appreciate Dr. Valdivia's input- patient started on contrast of and Coreg, continue amlodipine. Tolerating well. LifeVest will be ordered Saturday per cardio 2. Slurred speech with left-sided facial droop and left arm and leg weakness no recurrent episodes since admission likely 2/2 hypoglycemic episode with blood sugars in the 40s Neurology consulted, appreciate input: also agrees it may be 2/2 hypoglycemia, less likely TIA imaging & workup unremarkable Per Neuro: continue aspirin 81 mg and Lipitor 40 mg. Keep bp under 130/80 3. Hypoglycemia Patient missed a meal at home and took his regular diabetic meds No recurrent hypoglycemic episodes s/p D5 IVF hydration Hypoglycemic protocol in place 4. Hypertension Controlled on current regimen 5. NIDDM 2 Hold home meds given recent hypoglycemic episodes blood sugars acceptable Hypoglycemic protocol DVT ppx: heparin sc DISPO: pending patient education from cardiac rehabilitation, and discharged on LifeVest Saturday or Saturday. VS,Fishbone, I+O VS, Fishbone, I+O Laboratory Tests 10/31/19 05:47 Vital Signs Date Time Temp Pulse Resp B/P (MAP) Pulse Ox O2 Delivery O2 Flow Rate FiO2 10/31/19 12:00 97.7 64 20 137/79 (98) 97 Room Air I&O- Last 24 Hours up to 6 AM 10/31/19 06:00 Intake Total 1980 ml Output Total 3850 ml Balance -1870 ml GME ATTESTATION GME ATTESTATION My faculty preceptor for this patient encounter was physically present during the encounter and was fully available. All aspects of the patient interview, examination, medical decision making process, and medical care plan development were reviewed and approved by the faculty preceptor. The faculty preceptor is aware and concurs with the plan as stated in the body of this note and will atte st to such by his/her cosignature. FERCHO MADDEN DO Oct 31, 2019 13:43
[2019-10-31] MEDS: SLF 3 ML SYR IV SCH ×2 (13:59→21:41)
--- NOTE | 2019-10-31 15:46 | IPN ---
CARDIOLOGY PROGRESS NOT (Covering for Dr. Valdivia) DATE: 10/31/2019 SUBJECTIVE: The patient currently has no cardiovascular complaints, lying comfortably flat in his bed. No further problems with hypoglycemia now that he is eating regularly. Appears to be tolerating the adjustment of his medications without adverse effect. OBJECTIVE: Late middle-aged male, somewhat slim body build, laying comfortably flat. Heart rate 74 bpm and regular, blood pressure 135/76 supine, 124/64 sitting with legs dependent, respiratory 16, oxygen saturation 99% on room air. He is afebrile. Weight 151 pounds, body mass index (BMI) 22.3. No pallor or cyanosis. Normal oral moisture. Trachea midline. Neck veins were not elevated. Slightly increased anteroposterior chest diameter with reduced chest expansion. Fairly good air entry over both lung nichols with no inspiratory rales. Slight prolongation of expiration, but no audible wheeze. Apical impulse was not palpable. Heart sounds were somewhat distant. No audible murmur. Abdomen soft. Has no dependent edema. Pedal pulses were normal. AUCTIONEER ART: Only sinus rhythm with left bundle branch block. LABORATORY DATA: Hemoglobin stable at 13.3 with normal white blood cell count and platelet count. Chemistry confirmed electrolyte balance with BUN 13, creatinine 0.9, fasting glucose 162, calcium 9, with admission albumin of 3.6. Serial Troponin I levels have been negative. His pro BNP level today was slightly elevated at 1797. ECHOCARDIOGRAM: Study reviewed independently shows borderline hypertrophied and at least moderately dilated left ventricle with paradoxical septal motion. Akinesis of the apex and marked hypokinesis of the anterior wall, but the inferior and lateral boggs move normally. Ejection fraction approximately 35%. Mildly dilated left atrium with grade 1 left ventricular (LV) diastolic dysfunction, but currently normal estimated mean left atrial pressure. Normal right heart chamber sizes and wall motion with pulmonary arterial pressure upper limits of normal. Normal inferior vena cava (IVC) size and collapse. Subtle aortic valvular sclerosis without functional abnormality. Normal aortic diameters. Mild degenerative changes of the mitral valvular apparatus, but with slightly low flow appearance to leaflet excursion, but no posterior systolic buckling. Mild to moderate mitral insufficiency. No pericardial effusion. IMPRESSION/PLAN: 1. Heart failure (systolic and diastolic dysfunction/chronic): Currently does not have signs of congestion and denies symptoms. Echocardiographic findings believed to be on the basis of chronic hypertension and his conduction disturbance - left bundle branch block. Just started on combination carvedilol and Entresto low-dose in place of myocarditis and amlodipine. He appears to tolerate these so far and renal function remains stable. 2. Abnormal EKG: Left bundle branch block previously not known to the patient. Very prominent precordial voltage in keeping with left ventricle hypertrophy, despite he would certainly be a candidate for a biventricular implantable cardioverter defibrillator (ICD) should his global left ventricular systolic performance not improved with medical therapy. 3. Hypertensive heart disease (benign with heart failure): As mentioned, does not have symptoms or signs of congestion despite his elevated pro-BNP level. Current blood pressure is well-controlled on low-dose carvedilol and Entresto. Renal function remains stable. 4. Mitral valve disorder (non rheumatic): Subtle degenerative change of his mitral valvular apparatus, but his observed insufficiency is likely on a functional phenomenon related to his left ventricular dysfunction and likely dilated mitral annulus. No symptoms or signs of endocarditis. Treatment would obviously be to optimize left ventricular performance and hopefully reduce left ventricular size. Our plan is to observe the patient in hospital with the introduction of these new agents and gradually ambulate him. Plans are being made for him to be discharged with a LifeVest, hopefully Saturday morning. DORON
[2019-10-31 16:00] VITALS: BP 136/84
[2019-10-31 20:00] VITALS: BP 137/81
[2019-10-31] MEDS: ASPIRIN 81 MG ENTERIC TAB PO SCH (21:40)
[2019-10-31] MEDS: CETIRIZINE (ZyrTEC) 10 MG TAB PO SCH (21:40)
[2019-11-01] VITALS: BP 141/84
[2019-11-01 04:00] VITALS: BP 110/66
[2019-11-01] MEDS: SLF 3 ML SYR IV SCH ×3 (06:04→21:22)
[2019-11-01] MEDS: HEPARIN SOD (PORCINE) 5000 UNITS/ML VIAL (J1644 PER 1000UNITS) SC SCH ×3 (06:04→21:21)
[2019-11-01 08:00] VITALS: BP 123/60
[2019-11-01] MEDS: CARVedilol 3.125 MG TAB PO SCH (08:52)
[2019-11-01] MEDS: ENTRESTO 24-26MG TABLET (SACUBITRIL/VALSARTAN) PO SCH ×2 (08:52→21:21)
[2019-11-01] MEDS: ATORVASTATIN 20 MG TAB PO SCH (08:52)
[2019-11-01] MEDS: valACYclovir HCL 500 MG TAB PO SCH (08:56)
--- NOTE | 2019-11-01 09:30 | IPNPDOC ---
Text Note Date of Service The patient was seen on 11/01/19. NOTE Subjective: Pt examined at bedside. Continues to feel well without complaints. No issues overnight. He was seen by cardiology and started on expressed incorporating which she is tolerating well. No acute events on telemetry. Objective: Vitals: see below General: NAD, A&Ox3, resting comfortably in bed HEENT: NCAT, EOMI, anicteric sclera, MMM CV: RRR, no murmurs or clicks or rub, +S1S2 RESP: CTA b/l ABD: soft, NT, ND, +BS EXTREMITIES: no edema A/P: 55-yo male presented for slurred speech, left-sided facial droop and left arm and leg weakness. No prior cardiac or neurologic history. At time of EMS arrival, was found to be hypoglycemic at 47. Is a diabetic at baseline and had apparently taken all his medications, but skipped dinner. He had no other complaints. Episode was short-lived. He has no recurrent symptoms and has been well since. Suspicion is that it was likely due to hypoglycemia. Also found incidentally to have a newly-diagnosed severe cardiomyopathy with a reduced EF of 25-30%, asymptomatic and otherwise doing well. #chronic CHF - systolic/diastolic failure - continue with telemetry monitoring - medications optimized - entresto, coreg, mycardid - waiting for lifevest - o/p stress/cath - follow as per cardiology - assistance appreciated #Slurred speech with left-sided facial droop and left arm and leg weakness - no recurrent episodes since admission - likely 2/2 hypoglycemic episode with blood sugars in the 40s - Neurology consulted, appreciate input: also agrees it may be 2/2 hypoglycemia, less likely TIA - imaging & workup unremarkable - Per Neuro: continue aspirin 81 mg and Lipitor 40 mg. Keep bp under 130/80 #Hypoglycemia Patient missed a meal at home and took his regular diabetic meds No recurrent hypoglycemic episodes s/p D5 IVF hydration Hypoglycemic protocol in place #HTN Controlled on current regimen #NIDDM 2 - restart home meds at lower dose - continue to monitor FS - hypoglycemic protocol DVT ppx: heparin sc DISPO: pending patient education from cardiac rehabilitation, anticipate discharge with LifeVest Saturday or Saturday VS,Fishbone, I+O VS, Fishbone, I+O Vital Signs Date Time Temp Pulse Resp B/P (MAP) Pulse Ox O2 Delivery O2 Flow Rate FiO2 11/01/19 08:52 73 123/60 11/01/19 08:00 97.2 18 97 Room Air I&O- Last 24 Hours up to 6 AM0 11/01/19 06:00 Intake Total 1200 ml Output Total 2250 ml Balance -1050 ml JIM BECKER MD Nov 01, 2019 09:30
[2019-11-01 12:00] VITALS: BP 134/83
--- NOTE | 2019-11-01 15:18 | IPN ---
CARDIOLOGY PROGRESS NOTE (Covering for Dr. Valdivia) DATE: 11/01/2019 SUBJECTIVE: The patient claims to be feeling well, was able to ambulate with assistance in the bashir without shortness of breath, chest comfort or dizziness. Appears to be tolerating his new medications without a problem. OBJECTIVE: Somewhat slim, late middle-aged male, lay comfortably. Heart rate 80 bpm and regular, blood pressure 122/64 supine, 112/60 sitting with legs dependent, respiratory rate 16 per minute, oxygen saturation 98% on room air. Afebrile. His weight today was not recorded. No pallor or cyanosis. Normal oral moisture. Trachea midline. Neck veins were not elevated. Good air entry over both lung nichols with no abnormal pulmonary adventitious sounds. No dependent edema. SU[employer]OR [employer]ING: This has been showing only sinus rhythm. No significant rhythm disturbance despite his advanced left ventricular dysfunction. IMPRESSION/PLAN: 1. Heart failure (systolic and diastolic/chronic): Remains free of any symptom or sign of congestion. Appears to be tolerating his carvedilol and Entresto therapies without problem. With his observed heart rate, I intend to increase his carvedilol slightly from 3.125 mg twice a day to 6.25 mg twice a day. 2. Abnormal EKG/left bundle branch block: Despite his current beta stiven therapy, has been free of bradyarrhythmia. No complex ventricular ectopic activity despite his left ventricular dysfunction. Hopefully, a LifeVest can be arranged for him either Saturday or Saturday, so he can be discharged home at low risk of suffering a malignant ventricular arrhythmia without adequate therapy. 3. Hypertensive heart disease (benign with heart failure): Current blood pressure is adequately controlled. I am cautiously optimistic he will tolerate the slight increase in his carvedilol therapy. Follow up renal function will be obtained tomorrow. 4. Mitral valve disorder (non rheumatic): No auscultatory change today. As mentioned, primary management of what we suspect is a functional phenomenon is to improve left ventricular performance and reduce left ventricular size. Dr. Valdivia will be resuming his primary cardiology care tomorrow morning.
[2019-11-01 16:00] VITALS: BP 135/81
[2019-11-01] MEDS: metFORMIN (GLUCOPHAGE) 1000 MG TABLET PO SCH (17:15)
[2019-11-01 20:00] VITALS: BP 129/71
[2019-11-01] MEDS: CARVedilol 6.25 MG TAB PO SCH (21:21)
[2019-11-01] MEDS: SITagliptin 50 MG TAB (JANUVIA) PO SCH (21:21)
[2019-11-01] MEDS: ASPIRIN 81 MG ENTERIC TAB PO SCH (21:21)
[2019-11-01] MEDS: CETIRIZINE (ZyrTEC) 10 MG TAB PO SCH (21:21)
[2019-11-02] VITALS: BP 122/73
[2019-11-02 04:00] VITALS: BP 106/60
[2019-11-02] MEDS: SLF 3 ML SYR IV SCH ×3 (05:28→20:49)
[2019-11-02] MEDS: HEPARIN SOD (PORCINE) 5000 UNITS/ML VIAL (J1644 PER 1000UNITS) SC SCH ×3 (05:28→20:47)
[2019-11-02 05:59] LABS: ALBUMIN 3.3 GM/DL (3.2-5.2); CREATININE FOR GFR 1.29 MG/DL (0.70-1.30); GLOMERULAR FILTRATION RATE 59.7 (>49); POTASSIUM SERUM 4.1 MEQ/L (3.5-5.1)
[2019-11-02 08:00] VITALS: BP 131/81
[2019-11-02] MEDS: metFORMIN (GLUCOPHAGE) 1000 MG TABLET PO SCH ×2 (08:30→18:08)
[2019-11-02] MEDS: SITagliptin 50 MG TAB (JANUVIA) PO SCH ×2 (08:31→20:48)
[2019-11-02] MEDS: ATORVASTATIN 20 MG TAB PO SCH (08:31)
[2019-11-02] MEDS: ENTRESTO 24-26MG TABLET (SACUBITRIL/VALSARTAN) PO SCH ×2 (08:31→20:48)
[2019-11-02] MEDS: valACYclovir HCL 500 MG TAB PO SCH (08:33)
[2019-11-02] MEDS: CARVedilol 6.25 MG TAB PO SCH ×2 (08:33→20:48)
--- NOTE | 2019-11-02 08:50 | IPN ---
DATE: 11/02/2019 Mr. Guzman is feeling well and has no specific complaints today. He denies any dyspnea. He feels a little weak, but was able to ambulate yesterday around the PCU without difficulty. Telemetry monitoring revealed a single run of nonsustained ventricular tachycardia. VITAL SIGNS: Blood pressure 106/60. Heart rate in 70s and 80s. He is afebrile. Saturation 97% on room air. Weight was recorded 68.4 kg. The fluid balance was not well recorded. He is alert, oriented and appropriate. Jugular venous pulse (JVP) is not high. Lungs are clear. Good air movement. Heart Exam: Regular rhythm. There are typical features of left bundle branch block with paradoxically splitting second heart sound. I do not appreciate any murmur. Abdomen is soft, nontender. Extremities are free of edema. Neurologic: Intact. Laboratories: Normal CBC. Basic metabolic panel reveals sodium 139, potassium 4.1, BUN 23, creatinine 1.3, GFR 60 and glucose 159. N-terminal pro BNP on the was about 1800. His echocardiogram that was performed October 29 has revealed severe left ventricular systolic dysfunction with ejection fraction (EF) 25-30% with [id number] mitral insufficiency. ASSESSMENT/PLAN: Mr. Guzman is a 64-year-old man who has cardiomyopathy, unclear whether ischemic or nonischemic. He seems to be very well compensated from a hemodynamic point of view and is already on appropriate medications that include carvedilol 6.5 twice a day and ENTRESTO 50 mg twice a day. My plan would be to continue current medications. He is ready to be discharged. Dr. Valdivia requested that he gets a LifeVest, but it seems to me that no arrangements have been made so far. I will contact [facility] and try to arrange it as soon as possible.
[2019-11-02 12:00] VITALS: BP 128/69
[2019-11-02] MEDS ORDERED: ENTR1TAB PO (12:02)
[2019-11-02] MEDS ORDERED: CARV6.25 PO (12:02)
[2019-11-02] MEDS ORDERED: GLIP10TA6 PO (12:04)
--- NOTE | 2019-11-02 14:45 | DS.PDOC ---
Discharge Summary General Date of Admission Oct 29, 2019 at 10:16 Date of Discharge 11/02/19 Attending Physician: JIM BECKER MD Specialist/Consultants Involve Cardio: Dr. Valdivia, Dr. Medina, Dr. Moon Neuro: Dr. Lopes Discharge Summary PROCEDURES PERFORMED DURING STAY: 2D echo DISCHARGE DIAGNOSES: 1. Newly diagnosed CAD, EF 25-30% 2. Slurred speech with left facial droop and arm and leg weakness, likely 2/2 h ypoglycemia 3. Hypertension with hypertensive heart disease 4. NIDDM 2 HISTORY OF PRESENT ILLNESS: 55-yo male presented for slurred speech, left-sided facial droop and left arm and leg weakness. No prior cardiac or neurologic history. At time of EMS arrival, was found to be hypoglycemic at 47. Is a diabetic at baseline and had apparently taken all his medications, but skipped dinner. He had no other complaints. Episode was short-lived. In the ER, was found to have fingersticks in the 50s-60s, improved with D5/half NS. Given concern for possible TIA/CVA, was given ASA & statin. HOSPITAL COURSE: Patient was admitted and imaging was negative for acute neurologic change. He has no recurrent symptoms and was stable the remainder of his stay without any complications. Neurology was consulted, and suspicion is that his slurred speech and limb weakness was likely due to hypoglycemia. per their recommendation, he was placed on ASA 81mg & Lipitor 40mg with bp control <130/80. During his stay, he was found to incidentally have new finding of severe cardio myopathy, with an EF 25-30% and hypokinesis on echo. His diagnosis was reviewed in depth with patient and he was educated on risks of arrythmia and sudden cardiac . He was asymptomatic through his stay and otherwise doing well. Cardiology was consulted. His medications were readjusted to carvedilol and Entresto, with plans for outpatient cardiac catheterization and possible biventricular ICD. He remained on telemetry, which revealed recurrent episodes of nonsustained V. tach. Cardiology arranged a LifeVest, which patient was educated on and sent home with. He is instructed to comply with all meds and follow up closely with his primary doctor & cardiology. DISCHARGE MEDICATIONS: Please see below. ALLERGIES: Please see below. PHYSICAL EXAMINATION ON DISCHARGE: VITAL SIGNS: Please see below. GENERAL: NAD, A&Ox3 HEENT: nc, at, EOMI NECK: supple, no JVD CARDIOVASCULAR EXAMINATION: RRR, normal S1 S2 RESPIRATORY EXAMINATION: CTAB, no w/r/r ABDOMINAL EXAMINATION: soft, nt/nd, normoactive bowel sounds EXTREMITIES: 2+ pulses b/l, no cyanosis or edema SKIN: no visible rash or lesions, warm, dry NEUROLOGICAL EXAMINATION: no focal deficits, able to move all extremities LABORATORY DATA: Please see below. IMAGING: * 10/29/19 2-D echo: 1. Severe global left ventricular systolic dysfunction with regional wall motion abnormalities consistent with probably coronary artery disease. 2. Aortic valve sclerosis without stenosis or aortic re gurgitation. 3. Mitral annulus calcification with mild to moderate mitral regurgitation. 4. Trace pericardial effusion, no evidence of cardiac tamponade. The estimated global left ventricular systolic function is 25-30%. * 10/29/[address]: Normal noncontrast head CT. No evidence for acute intracran ial pathology or trauma/injury. * 10/29/19 brain MRA: Persistent origin left posterior cerebral artery. Left dominant vertebral arteries. Otherwise unremarkable MR angiography the brain. * 10/29/19 brain MRI: 1 cm low T1 high T2 signal intensity focus in the right basal ganglia most consistent with normal variant dilated perivascular space versus less likely old lacunar infarct right basal ganglia. No acute infarction is seen. No evidence of hemorrhage is seen. Mild small vessel changes. Otherwise negative. * 10/29/19 carotid Doppler: No hemodynamically significant areas of narrowing or stenosis appreciated. Based on set standards narrowing falls within the less than 50% range. PROGNOSIS: fair ACTIVITY: As tolerated. DIET: 2g sodium DISPOSITION: home DISCHARGE INSTRUCTIONS: 1. Follow-up with PCP & Cardio within 1 week 2. Return to ER for emergency DISCHARGE CONDITION: Stable. TIME SPENT ON DISCHARGE: Greater than 35 minutes. Vital Signs/I&Os Vital Signs Date Time Temp Pulse Resp B/P (MAP) Pulse Ox O2 Delivery O2 Flow Rate FiO2 11/02/19 12:00 97.5 73 18 128/69 (88) 98 Room Air I&O- Last 24 Hours up to 6 AM 11/02/19 06:00 Intake Total 1720 ml Output Total 750 ml Balance 970 ml Laboratory Data Labs 24H Laboratory Tests 2 11/01/19 16:26: Bedside Glucose (Misc Panel) 191H 11/01/19 21:20: Bedside Glucose (Misc Panel) 174H 11/02/19 05:08: Anion Gap 3L, Glomerular Filtration Rate 59.7, Calcium Level 9.0, Phosphorus Level 3.0, Albumin 3.3 CBC/BMP Laboratory Tests 11/02/19 05:08 FSBS Laboratory Tests Test 11/01/19 16:26 11/01/19 21:20 Range/Units Bedside Glucose (Misc Panel) 191 174 80-115 MG/DL Discharge Medications Scheduled Amlodipine Besylate (Amlodipine Besylate) 5 Mg Tab, 5 MG PO QHS, (Reported) Aspirin (Aspir 81) 81 Mg Tab, 81 MG PO QHS for pain, (Reported) Atorvastatin Calcium (Atorvastatin Calcium) 40 Mg Tab, 40 MG PO QHS, (Reported) Carvedilol (Carvedilol) 6.25 Mg Tablet, 6.25 MG PO BID Cetirizine HCl (Cetirizine HCl) 10 Mg Tab, 10 MG PO QHS, (Reported) Ergocalciferol (Vitamin D2) (Vitamin D2) 50,000 Units Cap, 50,000 UNITS PO QWEEK, (Reported) saturdays Glipizide (Glipizide) 10 Mg Tab, 20 MG PO QHS change in dose from 10mg xl daily 09/29/19 Sacubitril/Valsartan (Entresto 24 mg-26 mg Tablet) 1 Each Tablet, 1 TAB PO BID Sitagliptin Phos/Metformin HCl (Janumet 50-1,000 mg Tablet) 1 Tab Tab, 1 TAB PO BID, (Reported) Telmisartan (Telmisartan) 80 Mg Tab, 80 MG PO QHS, (Reported) Valacyclovir HCl (Valtrex) 500 Mg Tablet, 500 MG PO DAILY, (Reported) Allergies Coded Allergies: Penicillins (Verified Allergy, Intermediate, RASH, 12/03/18) erythromycin base (Verified Adverse Reaction, Mild, N/V, 12/03/18) GME ATTESTATION GME ATTESTATION My faculty preceptor for this patient encounter was physically present during the encounter and was fully available. All aspects of the patient interview, examination, medical decision making process, and medical care plan development were reviewed and approved by the faculty preceptor. The faculty preceptor is aware and concurs with the plan as stated in the body of this note and will attest to such by his/her cosignature. FERCHO MADDEN DO Nov 02, 2019 14:10
[2019-11-02 16:00] VITALS: BP 108/63
--- NOTE | 2019-11-02 19:20 | ECGEPIP ---
[facility] Test Date: 2019-11-02 Pat Name: LUZ DUNCAN Department: Room: [place] [address] Gender: Male Independent Marketing Consultant: RF : [id number] Requested By: Vinnie Moon Order Number: [id number] Reading MD: Vinnie Moon Measurements Intervals [place] Rate: 72 P: 72 DC: 152 QRS: -31 QRSD: 177 T: 169 QT: 475 QTc: 522 Interpretive Statements normal sinus rhythm Left axis deviation Left bundle branch block Probable Left ventricular hypertrophy despite conduction disturbance in light of precordial voltage. No change from 10/29/19 Electronically Signed on 11-02-2019 19:20:32 EST by Vinnie Moon
[2019-11-02 20:00] VITALS: BP 148/75
[2019-11-02] MEDS: ASPIRIN 81 MG ENTERIC TAB PO SCH (20:48)
[2019-11-02] MEDS: CETIRIZINE (ZyrTEC) 10 MG TAB PO SCH (20:48)
[2019-11-03] VITALS: BP 127/68
[2019-11-03] MEDS: SLF 3 ML SYR IV SCH (06:00)
[2019-11-03] MEDS: HEPARIN SOD (PORCINE) 5000 UNITS/ML VIAL (J1644 PER 1000UNITS) SC SCH (06:34)
[2019-11-03 08:00] VITALS: BP 126/69
[2019-11-03 08:30] LABS: BLOOD UREA NITROGEN 25 MG/DL (7-18); CALCIUM LEVEL 9.2 MG/DL (8.8-10.2); CARBON DIOXIDE LEVEL 23 MEQ/L (21-32); CHLORIDE LEVEL 113 MEQ/L (98-107); CREATININE FOR GFR 1.14 MG/DL (0.70-1.30); GLOMERULAR FILTRATION RATE > 60.0 (>49); GLUCOSE, FASTING 153 MG/DL (70-100); POTASSIUM SERUM 4.2 MEQ/L (3.5-5.1); SODIUM LEVEL 142 MEQ/L (136-145)
[2019-11-03] MEDS: ENTRESTO 24-26MG TABLET (SACUBITRIL/VALSARTAN) PO SCH (09:10)
[2019-11-03] MEDS: metFORMIN (GLUCOPHAGE) 1000 MG TABLET PO SCH (09:10)
[2019-11-03] MEDS: SITagliptin 50 MG TAB (JANUVIA) PO SCH (09:10)
[2019-11-03] MEDS: ATORVASTATIN 20 MG TAB PO SCH (09:10)
[2019-11-03 09:11] VITALS: BP 126/69
[2019-11-03] MEDS: valACYclovir HCL 500 MG TAB PO SCH (09:11)
[2019-11-03] MEDS: CARVedilol 6.25 MG TAB PO SCH (09:11)
--- NOTE | 2019-11-03 11:27 | IPNPDOC ---
Text Note Date of Service The patient was seen on 11/03/19. NOTE S: Patient was examined at bedside and had no acute changes overnight. No complaints today. Feeling healthy and like his normal self. His discharge was delayed from yesterday to today due to pending LifeVest, which arrive today. Patient was educated on its usage and will be discharged home today. Please refer to 11/02/19 discharge summary. No changes and son. He is medically stable and cleared for discharge. PE: General exam: A&O x3, NAD, resting comfortably HEENT: NCAT, EOMI Cardiac: RRR, normal S1 & S2, no murmurs Respiratory: CTAB, good air exchange, no w/r/r Abdomen: soft, NT, ND, normoactive bowel sounds Extremity: 2+ radial and dorsalis pedis pulses, no edema or calf tenderness Skin: [place], warm, dry, no visible rash Msk: strength 5/5 x4, normal tone Neuro: normal speech, no focal deficits Psych: Normal mood and affect A/P: 55-yo male presented for slurred speech, left-sided facial droop and left arm and leg weakness. No prior cardiac or neurologic history. At time of EMS arrival, was found to be hypoglycemic at 47. Is a diabetic at baseline and had apparently taken all his medications, but skipped dinner. He had no other complaints. Episode was short-lived. He has no recurrent symptoms and has been well since. Suspicion is that it was likely due to hypoglycemia. Also found incidentally to have a newly-diagnosed severe cardiomyopathy with a reduced EF of 25-30%, asymptomatic and otherwise doing well. 1. Newly diagnosed CAD: Send home on Lifevest. Stable. Closely f/u with Cardio & PCP in office. 2. Slurred speech with left-sided facial droop and left arm and leg weakness: resolved, likely 2/2 hypoglycemia. Pt educated on diabetic regimen & med management to avoid further episodes. 3. Hypoglycemia - resolved, see #2 4. Hypertension - controlled. Will d/c home on current regimen 5. NIDDM 2 - resume home meds. Educated on hyper/hypo glycemia DISPO: d/c home with Lifevest, see discharge summary of 11/02/19. VS,Fishbone, I+O VS, Fishbone, I+O Laboratory Tests 11/03/19 07:38 Vital Signs Date Time Temp Pulse Resp B/P (MAP) Pulse Ox O2 Delivery O2 Flow Rate FiO2 11/03/19 09:11 69 126/69 11/03/19 08:00 98.2 18 96 Room Air I&O- Last 24 Hours up to 6 AM 11/03/19 06:00 Intake Total 1010 ml Output Total 600 ml Balance 410 ml GME ATTESTATION GME ATTESTATION My faculty preceptor for this patient encounter was physically present during the encounter and was fully available. All aspects of the patient interview, examination, medical decision making process, and medical care plan development were reviewed and approved by the faculty preceptor. The faculty preceptor is aware and concurs with the plan as stated in the body of this note and will attest to such by his/her cosignature. FERCHO MADDEN DO Nov 03, 2019 11:27
== END 2019-11-03 13:35 | disposition home or self-care (01) | DRG 638 ==
LOC: M ED 06:22 → M ED INP 10:16 → ENRESERV 12:46 → M PCU 13:20
PROVIDERS: ADMIT Internal Medicine; ATTEND Internal Medicine
DX: E11.649 Type 2 diabetes mellitus with hypoglycemia without coma (principal); I47.2 Ventricular tachycardia; I42.9 Cardiomyopathy, unspecified; I50.32 Chronic diastolic (congestive) heart failure; I25.10 Atherosclerotic heart disease of native coronary artery without angina pectoris; I11.0 Hypertensive heart disease with heart failure; I44.7 Left bundle-branch block, unspecified; I34.0 Nonrheumatic mitral (valve) insufficiency; Z85.46 Personal history of malignant neoplasm of prostate; Z85.038 Personal history of other malignant neoplasm of large intestine; Z90.49 Acquired absence of other specified parts of digestive tract; Z79.82 Long term (current) use of aspirin; Z79.84 Long term (current) use of oral hypoglycemic drugs; Z79.899 Other long term (current) drug therapy; Z88.0 Allergy status to penicillin; Z88.1 Allergy status to other antibiotic agents

== ENCOUNTER 2019-11-08 05:18 | Emergency (ER) | payer OTHER ==
[~2019-11-08] VITALS: Ht 175.3 cm; Wt 72.7 kg
[~2019-11-08 05:18] MED LIST changes: +CARV6.25 PO; +ENTR1TAB PO; +VALT500T PO; +VITA50005 PO
[2019-11-08] MEDS ORDERED: FORA1KIT XX (07:04)
[2019-11-08] MEDS ORDERED: BLOO-76 MC (07:04)
[2019-11-08 07:15] VITALS: BP 107/63
== END 2019-11-08 07:24 | disposition home or self-care (01) ==
LOC: M ED 05:18
DX: E11.649 Type 2 diabetes mellitus with hypoglycemia without coma (principal); I11.0 Hypertensive heart disease with heart failure; I50.9 Heart failure, unspecified; I47.2 Ventricular tachycardia; Z79.899 Other long term (current) drug therapy; Z79.84 Long term (current) use of oral hypoglycemic drugs; Z79.82 Long term (current) use of aspirin; Z88.0 Allergy status to penicillin; Z88.1 Allergy status to other antibiotic agents; Z87.891 Personal history of nicotine dependence

== ENCOUNTER → 2020-06-23 | Outpatient (CLI) | payer MEDICARE, OTHER ==
[~2020-06-23] MED LIST changes: +AMLO1TAB24 PO; -AMLO5TAB6 PO; -ASPI81TA85 PO; +ASPI81TA86 PO; +BLOO-76 MC; +FORA1KIT XX
--- NOTE | 2020-06-23 17:32 | REP ---
INDICATION: LEFT SHOULDER PAIN COMPARISON: None. TECHNIQUE: Internal rotation, external rotation, and Y view. FINDINGS: No acute fracture or dislocation. The acromioclavicular and glenohumeral joints are intact. No periarticular calcifications or degenerative changes are appreciated. Sub acromial space is normal. Surrounding soft tissues are unremarkable. IMPRESSION: Normal age-appropriate left shoulder radiographs. <Electronically signed by Matt La > 06/23/20 [id number]
--- NOTE | 2020-06-23 17:38 | REP ---
INDICATION: BRONCHITIS COMPARISON: None. TECHNIQUE: PA and lateral. FINDINGS: The mediastinum and cardiac silhouette are normal. The lung nichols are clear and without acute consolidation, effusion, or pneumothorax. The skeletal structures are intact and normal. IMPRESSION: No acute cardiopulmonary process <Electronically signed by Matt La > 06/23/20 0599
== END ==
LOC: M WUC 16:52
PROVIDERS: ATTEND Family Medicine
DX: J20.9 Acute bronchitis, unspecified (principal); M25.512 Pain in left shoulder

== ENCOUNTER → 2020-09-12 | Outpatient (REF) | payer MEDICARE, OTHER | LOC: M LAB REF 16:44 | PROVIDERS: ATTEND Physician Assistant Medical | DX: Z20.828 Contact with and (suspected) exposure to other viral communicable diseases (principal) ==

== ENCOUNTER 2020-11-02 12:26 | Emergency (ER) | payer MEDICARE, OTHER ==
[~2020-11-02] VITALS: Ht 175.3 cm; Wt 65.0 kg
--- OUTSIDE RECORDS SUMMARY | 2020-11-02 12:33 | CCD | Continuity of Care Document ---
Author Author Blaze RODRIGUEZ DSheryl Longoria Organization Unknown Address [address] [place] [address] Phone [phone] Care Team Providers Care Tin Recovery Worker Name Role Phone Shirley Rodriguez D.O. AUTM Problems Active Problems Provider Date Essential hypertension FAYE Polk Onset: 9 Vitamin D deficiency FAYE Polk Onset: 04/27/2019 Type 2 diabetes mellitus FAYE Polk Onset: 019 Mixed hyperlipidemia FAYE Polk Onset: 04/27/2019 Allergic rhinitis FAYE Polk Onset: 04/27/2019 History of malignant neoplasm of colon FAYE Polk Onset: 04/27/2019 History of malignant neoplasm of prostate FAYE Polk Onset: 04/27/2019 Genital herpes simplex FAYE Polk Onset: 9 Social History Type Date Description Comments Sex Unknown Tobacco Use Start: Unknown End: Quit Smoking Status Reviewed: 10/10/20 Quit ETOH Use Denies alcohol use Tobacco Use Start: Unknown End: Unknown Patient is a former smoker Recreational Drug Use Denies Drug Use Exercise Type/Frequency Does not exercise Sun Exposure Does not use sunscreen Seat Belt/Car Seat Always uses seat belt Allergies, Adverse Reactions, Alerts Active Allergies Reaction Severity Comments Date Penicillin 04/01/2019 Erythromycin 04/01/2019 Medications Active Medications SIG Qnty Indications Ordering Provide r Date Mucinex 600mg Tablets ER 12HR 1 tab every 12 hours as needed 60tabs Shirley Rodriguez D.O. Nystatin/Triamcinolone Acetonide 294027-5.1Unit/GM-% Cream apply a thin layer to the rash on the ch est twice daily until resolved 60gm B37.2 Brian DomingoOSheryl 12/10 Entresto 24-26mg Tablets 1 tab by mouth twice a day Isadora Domingo.OSheryl 11/09 Vitamin D (Ergocalciferol) 1.25mg (26449 Ut) Capsules 1 capsule weekly 12caps Isadora Domingo. OSheryl 09/29/[address] 1 by mouth every day 90tabs Isadora Domingo.O. Zyrtec Allergy 10mg Tablets 1 by mouth every night 90tabs Isadora Domingo.O. Lipitor 40mg Tablets 1 by mouth every night 90tabs Isadora Domingo.O. Janumet 50-1000mg Tablets 1 tab by mouth twice a day 180tabs Isadora Domingo.O. Valacyclovir HCL 500mg Tablets 1 by mouth every day 90tabs Isadora Domingo.O. Carvedilol 6.25mg Tablets 1 tablet by mouth twice a day Unknown Fish Oil 1200mg Capsules 1 by mouth every day Unknown Preservision Areds 2 Areds 2 Capsu les daily Unknown History Medications Shingrix 50mcg/0.5ML Suspension Re c inject subcutaneous times one 1units I42.9 Shirley Rodriguez D.O Sheryl 07/08/2020 - 10/10/2020 Immunizations Description No Information Available Vital Signs Date Vital Result Comment 10/10/2020 9:37am BP Systolic 136 mmHg BP Diastolic 88 mmHg Height 69 inches 5'9" Weight 145.25 lb BMI (Body Mass Index) 21.4 kg/m2 Heart Rate 50 /min Respiratory Rate 14 /min Body Temperature 97.6 F O2 % BldC Oximetry 99 % [place] Body Weight 160 lb 07/08/2020 9:18am BP Systolic 118 mmHg BP Diastolic 80 mmHg Height 69 inches 5'9" Weight 145.50 lb BMI (Body Mass Index) 21.5 kg/m2 Heart Rate 62 /min Respiratory Rate 16 /min Body Temperature 97.0 F O2 % BldC Oximetry 99 % [place] Body Weight 160 lb Results Test Acquired Date Facility Test Result H/L Range Note Laboratory test finding 09/13/2020 [place] [address] [phone] Ferritin <pending> CBC W/Auto Differential 09/13/2020 [facility] White Blood Count Ser Auto CNT <pending> RBC Red Blood Count <pending> Hemoglobin Blood <pending> Hematocrit <pending> MCV (Corpuscular Volume) <pending> MCH (Corpuscular Hemoglobin) <pending> MCHC (Corpuscular Hemog Conc) <pending> RDW <pending> Platelet Count Blood Auto CNT <pending> MPV <pending> Neutrophils <pending> Fluid Bands <pending> Fluid Lymphocytes <pending> Monocytes <pending> Fluid Body Eosinophils <pending> Basophils % <pending> Absolute Basophils <pending> Absolute Eosinophils <pending> Absolute Lymphocytes <pending> Absolute Monocytes <pending> Absolute Neutrophils Auto CNT <pending> CMP 09/13/2020 [facility] Albumin Serum/Plasma <pending> Alt - SGPT <pending> Calcium Ser/Plasma Mass/Vol <pending> Carbon Dioxide Ser/Plasm <pending> Chloride Serum/Plasma <pending> Creatinine Serum Mass/Vol <pending> Glucose Serum <pending> Alkaline Phosphatase <pending> Potassium <pending> Protein Total <pending> Sodium <pending> Ast - Sgot <pending> BUN - Urea Nitrogen <pending> Hemoglobin A1c 09/13/2020 [facility] Hemoglobin A1c <pending> Vitamin D 25 Hydrox 09/13/2020 [facility] Z#Other Observations <pending> Lipid Panel 09/13/2020 [facility] Cholesterol Total Mass/Vol <pending> Cholester/HDL Molecular Ratio <pending> High Density Lipoprotein <pending> LDL/HDL Mass Ratio <pending> LDL Cholesterol Mass/Vol <pending> Triglycerides Ser/Plas Mass/VL <pending> Cea 09/13/2020 [facility] Cea Carcinoembryonic Antigen <pending> Procedures Description No Information Available Medical Devices Description No Information Available Encounters Type Date Location Provider Dx Diagnosis Office Visit 10/10/2020 9:30a [facility] Shirley Rodriguez D.Von E11.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 I42.9 Cardiomyopathy, unspecified E55.9 Vitamin D deficiency, unspec ified I10 Essential (primary) hyperten tequila E78.2 Mixed hyperlipidemia Z85.038 Personal history of malignan t neoplasm of large intestine Z87.891 Personal history of nicotine dependence Z88.0 Allergy status to penicillin Z88.1 Allergy status to other anti biotic agents Z79.899 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59 Type 2 diabetes mellitus with ot her circulatory complications Isadora Domingo.OSheryl 10/10/2020 I42.9 Cardiomyopathy, unspecified Shirley Rodriguez, D.O. 10/10/2020 E55.9 Vitamin D deficiency, unspecifie d Shirley Rodriguez D.O. 10/10/2020 I10 Essential (primary) hypertension Shirley Rodriguez D.O. 10/10/2020 E78.2 Mixed hyperlipidemia Shirley Andre D.O. 10/10/2020 Z85.038 Personal history of other malignant neoplasm of large intestine Shirley Rodriguez D.OSehryl 10/10/2020 Z87.891 Personal history of nicotine dep endence Shirley Rodriguez D.O. 10/10/2020 Z88.0 Allergy status to penicillin Pina l Jennifer D.OSheryl 10/10/2020 Z88.1 Allergy status to other antibiot ic agents Shirley Rodriguez D.O. 10/10/2020 Z79.899 Other retirement (current) drug t herapy Shirley Rodriguez D.O. 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 07/08/2020 I42.9 Cardiomyopathy, unspecified FAYE Liriano 07/08/2020 E11.65 Type 2 diabetes mellitus with hy perglycemia FAYE Polk 07/08/2020 Z85.038 Personal history of other malignant neoplasm of large intestine FAYE Polk 07/08/2020 E55.9 Vitamin D deficiency, unspecifie d FAYE Polk 07/08/2020 I10 Essential (primary) hypertension FAYE Polk 07/08/2020 E78.2 Mixed hyperlipidemia FAYE Reina 06/23/2020 M25.512 Pain in left shoulder Isadora Bingham.OSheryl 06/23/2020 J20.9 Acute bronchitis, unspecified Ghulam Rodriguez D.Von Plan of Treatment Future Appointment(s):* 01/11/2021 9:20 am - FAYE Polk [facility] Functional Status Description No Information Available Mental Status Description No Information Available Referrals Description No Information Available
--- OUTSIDE RECORDS SUMMARY | 2020-11-02 12:34 | CCD ---
Author Author [facility] Organization [facility] Address Unknown Phone Unavailable Care Team Providers Care Press Clippings Cutter And Paster Name Role Phone Kocan, J [place]ott[place] AGRICULTURAL AGENT Unavailable Unavailable Kocan, J [place] AGRICULTURAL AGENT Unavailable Unavailable Kocan, J [place] AGRICULTURAL AGENT Unavailable Unavailable Kocan, J [place] AGRICULTURAL AGENT Unavailable Unavailable Kocan, J [place] AGRICULTURAL AGENT Unavailable Unavailable Kocan, J [place] AGRICULTURAL AGENT Unavailable Unavailable Kocan, J [place] AGRICULTURAL AGENT Unavailable Unavailable Kocan, J [place] AGRICULTURAL AGENT Unavailable Unavailable Kocan, J [place] AGRICULTURAL AGENT Unavailable Unavailable Kocan, J [place] AGRICULTURAL AGENT Unavailable Unavailable Kocan, J [place] AGRICULTURAL AGENT Unavailable Unavailable Kocan, J [place] AGRICULTURAL AGENT Unavailable Unavailable Kocan, J [place] AGRICULTURAL AGENT Unavailable Unavailable Navjot, Kentrell PA Unavailable Unavailable Navjot, Kentrell PA Unavailable Unavailable Navjot, Kentrell PA Unavailable Unavailable Navjot, Kentrell PA Unavailable Unavailable Navjot, Kentrell PA Unavailable Unavailable Navjot, Kentrell PA Unavailable Unavailable Navjot, Kentrell PA Unavailable Unavailable Navjot, Kentrell PA Unavailable Unavailable Navjot, Kentrell PA Unavailable Unavailable Navjot, Kentrell PA Unavailable Unavailable Navjot, Kentrell PA Unavailable Unavailable Navjto, Kentrell PA Unavailable Unavailable Navjot, Kentrell PA Unavailable Unavailable Navjot, Kentrell PA Unavailable Unavailable Navjot, Kentrell PA Unavailable Unavailable Navjot, Kentrell PA Unavailable Unavailable Navjot, Kentrell PA Unavailable Unavailable Navjot, Kentrell PA Unavailable Unavailable Navjot, Kentrell PA Unavailable Unavailable Navjot, Kentrell PA Unavailable Unavailable Navjot, Kentrell PA Unavailable Unavailable Navjot, Kentrell PA Unavailable Unavailable Navjot, Kentrell PA Unavailable Unavailable Navjot, Kentrell PA Unavailable Unavailable Navjot, Kentrell PA Unavailable Unavailable Navjot, Kentrell PA Unavailable Unavailable Navjot, Kentrell PA Unavailable Unavailable Navjot, Kentrell PA Unavailable Unavailable Navjot, Kentrell PA Unavailable Unavailable Navjot, Kentrell PA Unavailable Unavailable Navjot, Kentrell PA Unavailable Unavailable Navjot, Kentrell PA Unavailable Unavailable Navjot, Kentrell PA Unavailable Unavailable Navjot, Kentrell PA Unavailable Unavailable Navjot, Kentrell PA Unavailable Unavailable Navjot, Ekntrell PA Unavailable Unavailable Navjot, Kentrell PA Unavailable Unavailable Navjot, Kentrell PA Unavailable Unavailable Navjot, Kentrell PA Unavailable Unavailable Navjot, Kentrell PA Unavailable Unavailable Navjot, Kentrell PA Unavailable Unavailable Navjot, Kentrell PA Unavailable Unavailable Navjot, Kentrell PA Unavailable Unavailable Navjot, Kentrell PA Unavailable Unavailable Navjot, Kentrell PA Unavailable Unavailable Navjot, Kentrell PA Unavailable Unavailable Navjot, Kentrell PA Unavailable Unavailable Navjot, Kentrell PA Unavailable Unavailable Navjot, Kentrell PA Unavailable Unavailable CLEMENTE-RONI, NOLAN DO Unavailable Unavailable CLEMENTE-RONI, NOLAN DO Unavailable Unavailable CLEMENTE-RONI, NOLAN DO Unavailable Unavailable CLEMENTE-RONI, NOLAN DO Unavailable Unavailable CLEMENTE-RONI, NOLAN DO Unavailable Unavailable CLEMENTE-RONI, NOLAN DO Unavailable Unavailable CLEMENTE-RONI, NOLAN DO Unavailable Unavailable CLEMENTE-RONI, NOLAN DO Unavailable Unavailable CLEMENTE-RONI, NOLAN DO Unavailable Unavailable CLEMENTE-RONI, NOLAN DO Unavailable Unavailable CLEMENTE-RONI, NOLAN DO Unavailable Unavailable CLEMENTE-RONI, NOLAN DO Unavailable Unavailable CLEMENTE-RONI, NOLAN DO Unavailable Unavailable CLEMENTE-RONI, NOLAN DO Unavailable Unavailable CLEMENTE-RONI, NOLAN DO Unavailable Unavailable CLEMENTE-RONI, NOLAN DO Unavailable Unavailable CLEMENTE-RONI, NOLAN DO Unavailable Unavailable CLEMENTE-RONI, NOLAN DO Unavailable Unavailable CLEMENTE-RONI, NOLAN DO Unavailable Unavailable CLEMENTE-RONI, NOLAN DO Unavailable Unavailable CLEMENTE-RONI, NOLAN DO Unavailable Unavailable CLEMENTE-RONI, NOLAN DO Unavailable Unavailable CLEMENTE-RONI, NOLAN DO Unavailable Unavailable CLEMENTE-RONI, NOLAN DO Unavailable Unavailable CLEMENTE-RONI, NOLAN DO Unavailable Unavailable CLEMENTE-RONI, NOLAN DO Unavailable Unavailable CLEMENTE-RONI, NOLAN DO Unavailable Unavailable CLEMENTE-RONI, NOLAN DO Unavailable Unavailable CLEMENTE-RONI, NOLAN DO Unavailable Unavailable CLEMENTE-RONI, NOLAN DO Unavailable Unavailable CLEMENTE-RONI, NOLAN DO Unavailable Unavailable CLEMENTE-RONI, NOLAN DO Unavailable Unavailable CLEMENTE-RONI, NOLAN DO Unavailable Unavailable CLEMENTE-RONI, NOLAN DO Unavailable Unavailable CLEMENTE-RONI, NOLAN DO Unavailable Unavailable CLEMENTE-RONI, NOLAN DO Unavailable Unavailable CLEMENTE-RONI, NOLAN DO Unavailable Unavailable CLEMENTE-RONI, NOLAN DO Unavailable Unavailable CLEMENTE-RONI, NOLAN DO Unavailable Unavailable CLEMENTE-RONI, NOLAN DO Unavailable Unavailable CLEMENTE-RONI, NOLAN DO Unavailable Unavailable CLEMENTE-RONI, NOLAN DO Unavailable Unavailable CLEMENTE-RONI, NOLAN DO Unavailable Unavailable CLEMENTE-RONI, NOLAN DO Unavailable Unavailable CLEMENTE-RONI, NOLAN DO Unavailable Unavailable CLEMENTE-RONI, NOLAN DO Unavailable Unavailable CLEMENTE-RONI, NOLAN DO Unavailable Unavailable CLEMENTE-RONI, NOLAN DO Unavailable Unavailable CLEMENTE-RONI, NOLAN DO Unavailable Unavailable CLEMENTE-RONI, NOLAN DO Unavailable Unavailable CLEMENTE-RONI, NOLAN DO Unavailable Unavailable CLEMENTE-RONI, NOLAN DO Unavailable Unavailable CLEMENTE-RONI, NOLAN DO Unavailable Unavailable CLEMENTE-RONI, NOLAN DO Unavailable Unavailable CLEMENTE-RONI, NOLAN DO Unavailable Unavailable CLEMENTE-RONI, NOLAN DO Unavailable Unavailable CLEMENTE-RONI, NOLAN DO Unavailable Unavailable CLEMENTE-RONI, NOLAN DO Unavailable Unavailable CLEMENTE-RONI, NOLAN DO Unavailable Unavailable CLEMENTE-RONI, NOLAN DO Unavailable Unavailable CLEMENTE-RONI, NOLAN DO Unavailable Unavailable CLEMENTE-RONI, NOLAN DO Unavailable Unavailable CLEMENTE-RONI, NOLAN DO Unavailable Unavailable CLEMENTE-RONI, NOLAN DO Unavailable Unavailable CLEMENTE-RONI, NOLAN DO Unavailable Unavailable CLEMENTE-RONI, NOLAN DO Unavailable Unavailable CLEMENTE-RONI, NOLAN DO Unavailable Unavailable CLEMENTE-RONI, NOLAN DO Unavailable Unavailable CLEMENTE-RONI, NOLAN DO Unavailable Unavailable CLEMENTE-RONI, NOLAN DO Unavailable Unavailable CLEMENTE-RONI, NOLAN DO Unavailable Unavailable CLEMENTE-RONI, NOLAN DO Unavailable Unavailable CLEMENTE-RONI, NOLAN DO Unavailable Unavailable CLEMENTE-RONI, NOLAN DO Unavailable Unavailable CLEMENTE-RONI, NOLAN DO Unavailable Unavailable CLEMENTE-RONI, NOLAN DO Unavailable Unavailable CLEMENTE-RONI, NOLAN DO Unavailable Unavailable CLEMENTE-RONI, NOLAN DO Unavailable Unavailable CLEMENTE-RONI, NOLAN DO Unavailable Unavailable CLEMENTE-RONI, NOLAN DO Unavailable Unavailable CLEMENTE-RONI, NOLAN DO Unavailable Unavailable CLEMENTE-RONI, NOLAN DO Unavailable Unavailable KAMRAN, ADRIAN BECERRIL Unavailable Unavailable KAMRAN, ADRIAN BECERRIL Unavailable Unavailable KAMRAN, ADRIAN BECERRIL Unavailable Unavailable KAMRAN, ADRIAN BECERRIL Unavailable Unavailable KAMRAN, ADRIAN BECERRIL Unavailable Unavailable KAMRAN, ADRIAN BECERRIL Unavailable Unavailable KAMRAN, ADRIAN BECERRIL Unavailable Unavailable KAMRAN, ADRIAN BECERRIL Unavailable Unavailable KAMRAN, ADRIAN BECERRIL Unavailable Unavailable KAMRAN, ADRIAN BECERRIL Unavailable Unavailable KAMRAN, ADRIAN BECERRIL Unavailable Unavailable KAMRAN, ADRIAN BECERRIL Unavailable Unavailable KAMRAN, ADRIAN BECERRIL Unavailable Unavailable KAMRAN, ADRIAN BECERRIL Unavailable Unavailable KAMRAN, ADRIAN BECERRIL Unavailable Unavailable KAMRAN, ADRIAN BECERRIL Unavailable Unavailable KAMRAN, ADRIAN BECERRIL Unavailable Unavailable KAMRAN, ADRIAN BECERRIL Unavailable Unavailable KAMRAN, ADRIAN BECERRIL Unavailable Unavailable KAMRAN, ADRIAN BECERRIL Unavailable Unavailable KAMRAN, ADRIAN BECERRIL Unavailable Unavailable KAMRAN, ADRIAN BECERRIL Unavailable Unavailable KAMRAN, ADRIAN BECERRIL Unavailable Unavailable KAMRAN, ADRIAN BECERRIL Unavailable Unavailable KAMRAN, ADRIAN BECERRIL Unavailable Unavailable KAMRAN, ADRIAN BECERRIL Unavailable Unavailable KAMRAN, ADRIAN BECERRIL Unavailable Unavailable KAMRAN, ADRIAN BECERRIL Unavailable Unavailable KAMRAN, ADRIAN BECERRIL Unavailable Unavailable KAMRAN, ADRIAN BECERRIL Unavailable Unavailable KAMRAN, ADRIAN BECERRIL Unavailable Unavailable KAMRAN, ADRIAN BECERRIL Unavailable Unavailable KAMRAN, ADRIAN BECERRIL Unavailable Unavailable KAMRAN, ADRIAN BECERRIL Unavailable Unavailable KAMRAN, ADRIAN BEECRRIL Unavailable Unavailable KAMRAN, ADRIAN BECERRIL Unavailable Unavailable KAMRAN, ADRIAN BECERRIL Unavailable Unavailable KAMRAN, ADRIAN BECERRIL Unavailable Unavailable KAMRAN, ADRIAN BECERRIL Unavailable Unavailable KAMRAN, ADRIAN BECERRIL Unavailable Unavailable KAMRAN, ADRIAN BECERRIL Unavailable Unavailable KAMRAN, ADRIAN BECERRIL Unavailable Unavailable KAMRAN, ADRIAN BECERRIL Unavailable Unavailable KAMRAN, ADRIAN BECERRIL Unavailable Unavailable KAMRAN, ADRIAN BECERRIL Unavailable Unavailable KAMRAN, ADRIAN BECERRIL Unavailable Unavailable KAMRAN, ADRIAN BECERRIL Unavailable Unavailable KAMRAN, ADRIAN BECERRIL Unavailable Unavailable KAMRAN, CAMPBELL MD Unavailable Unavailable KAMRAN, CAMPBELL MD Unavailable Unavailable KAMRAN, CAMPBELL MD Unavailable Unavailable KAMRAN, CAMPBELL MD Unavailable Unavailable KAMRAN, CAMPBELL MD Unavailable Unavailable KAMRAN, CAMPBELL MD Unavailable Unavailable Re-disclosure Warning The records that you are about to access may contain information from federally-assisted alcohol or drug abuse programs. If such information is present, then the following federally mandated warning applies: This information has been disclosed to you from records protected by federal confidentiality rules (42 CFR part 2). The federal rules prohibit you from making any further disclosure of this information unless further disclosure is expressly permitted by the written consent of the person to whom it pertains or as otherwise permitted by 42 CFR part 2. A general authorization for the release of medical or other information is NOT sufficient for this purpose. The Federal rules restrict any use of the information to criminally investigate or prosecute any alcohol or drug abuse patient.The records that you are about to access may contain highly sensitive health information, the redisclosure of which is protected by Article 27-F of the [facility] Public Health law. If you continue you may have access to information: Regarding HIV / AIDS; Provided by facilities licensed or operated by the [facility] Office of Mental Health; or Provided by the [facility] Office for People With Developmental Disabilities. If such information is present, then the following [facility] mandated warning applies: This information has been disclosed to you from confidential records which are protected by state law. State law prohibits you from making any further disclosure of this information without the specific written consent of the person to whom it pertains, or as otherwise permitted by law. Any unauthorized further disclosure in violation of state law may result in a fine or usp sentence or both. A general authorization for the release of medical or other information is NOT sufficient authorization for further disc losure. Allergies and Adverse Reactions Type Description Substance Reaction Status Data Source(s ) Propensity to adverse reactions PENICILLINS Penicillins Ac tive [facility] Propensity to adverse reactions ERYTHROMYCIN BASE Erythromycin Base Active [facility] Family History Family Member Name Family Member Gender Family Member Status Date o f Status Description Data Source(s) Unknown Unknown Problem [facility] Encounters Encounter Providers Location Date Indications Data Source(s ) Outpatient Attender: Lottie GAVIN.WALTER-ALPA 2020 12:00:00 AM EST - 10/14/2020 10:39:15 AM EST [facility] Outpatient Attender: NOLAN GOMEZ DO [facility] 10/10/2020 08:30:00 AM EST [facility] Outpatient Attender: Kentrell MCKINNEY [facility] 07/08/2020 09:20:00 AM EDT [facility] ([facility]) Outpatient Attender: NOLAN GOMEZ [facility] 06/23/2020 04:10:00 PM EDT [facility] ([facility]) Outpatient Attender: ADRIAN YUEN-SJJuan Antonio.WALTER 0 12:00:00 AM EDT - 06/10/2020 11:37:01 AM EDT [facility] Outpatient Attender: NOLAN GOMEZ DO [facility] 04/07/2020 11:20:00 AM EDT [facility] ([facility]) Outpatient Attender: ADRIAN YUEN-SJP.WALTER 03/09/2020 12:00:00 AM EDT [facility] Outpatient Referrer: ADRIAN YUEN-SJP.WALTER 0 12:00:00 AM EDT - 02/19/2020 10:49:36 AM EDT [facility] Outpatient FP 02/16/2020 08:03:[address] [facility] Outpatient Attender: ADRIAN REGALADOSJJuan Antonio.GVR 02/11/2020 12:00:00 AM EDT [facility] Outpatient Attender: Kentrell MCKINNEY [facility] 01/04/2020 09:20:00 AM EDT [facility] ([facility]) Outpatient Attender: NOLAN GOMEZ [facility] 12/11/2019 01:10:00 PM EDT [facility] ([facility]) Outpatient Attender: Kentrell MCKINNEY [facility] 11/24/2019 10:20:00 AM EDT [facility] ([facility]) Outpatient Referrer: ADRIAN YUEN-SJP.WALTER 11/13/2019 12:00:00 AM EST [facility] Outpatient Attender: ADRIAN YUEN-SJP.WALTER 0 12:00:00 AM EST - 11/11/2019 03:47:46 PM EST [facility] Outpatient Attender: Kentrell MCKINNEY [facility] 11/10/2019 03:00:00 PM EST [facility] ([facility]) Outpatient 11/05/2019 07:55:00 PM [facility] 11/03/2019 09:01:12 PM [facility] Outpatient 11/03/2019 11:16:00 AM [facility] Outpatient Attender: NOLAN GOMEZ DO [facility] 09/29/2019 07:00:00 AM EST [facility] ([facility]) Medications Medication Brand Name Start Date Product Form Dose Route Admi nistrative Instructions Pharmacy Instructions Status Indications Reaction Description Data Source(s) carvedilol 6.25 MG Oral Tablet carvedilol (COREG) 6.25 MG tablet carvedilol (COREG) 6.25 MG tablet 07/29/2020 12:00:00 AM EST active Essential hypertensionCardiomyopathy, unspecified type TAKE 1 TA BLET(6.25 MG) BY MOUTH TWICE DAILY [facility] Essential hypertension Cardiomyopathy, unspecified type Shingrix Shingrix 07/08/2020 12:00:00 AM EDT SUBCUTANEOUS completed [facility] ([facility]) 12 HR Guaifenesin 600 MG Extended Release Oral Tablet [Mucin ex] Mucinex 06/23/2020 12:00:00 AM EDT active [facility] ([facility]) atorvastatin 40 MG Oral Tablet atorvastatin (LIPITOR) 40 MG tablet atorvastatin (LIPITOR) 40 MG tablet 05/19/2020 12:00:00 AM EDT 40 mg Oral active Take 1 tablet (40 mg total) by mouth daily [facility] Lisinopril 10 MG Oral Tablet lisinopril (PRINIVIL,ZEST RIL) 10 MG tablet lisinopril (PRINIVIL,ZESTRIL) 10 MG tablet 05/19/2020 12:00:00 AM EDT 10 mg Oral active Take 1 tablet (10 mg total) by mouth 2 (two) times a day [facility] Nystatin 555191 UNT/ML / Triamcinolone Acetonide 1 MG/ ML Topical Cream Nystatin/Triamcinolone Acetonide 12/11/2019 12:00:00 AM EDT active [facility] ([facility]) sacubitril 24 MG / valsartan 26 MG Oral Tablet [Entresto] En tresto 11/10/2019 12:00:00 AM EST ORAL active M EDENT ([facility]) Ergocalciferol 37331 UNT Oral Capsule Vitamin D (Ergocalcife rol) 09/29/2019 12:00:00 AM EST active M [facility]ENT ([facility]) Insurance Providers Payer name Policy type / Coverage type Policy ID Covered republican ID Covered republican's relationship to giles Policy Giles Plan Information FOR LIFE [id number] SP [id number] MEDICARE [id number] SP [id number] MEDICARE [id number] MEDICARE [id number] Ceci [id number] Ceci [id number] MEDICARE C [id number] S [id number] [place] [id number] S [id number] [place] [id number] SP [id number] [place] UNAVAILABLE S UNAVAILABLE [place]AST HUMANA [id number] SP [id number] [facility] (2018) Health Maintenance Organization (HMO) [id number] Self [id number] [facility] (2018) Health Maintenance Organization (HMO) [id number] Self [id number] [facility] (2018) Health Maintenance Organization (HMO) [id number] Self [id number] Problems, Conditions, and Diagnoses Code Display Name Description Problem Type Effective Dates Data Source(s) E78.49 Other hyperlipidemia Other hyperlipidemia [id number] 11/11/2019 12:00:00 AM [facility] I10 Essential hypertension Essential hypertension [id number] 11/11/2019 12:00:00 AM [facility] E11.9 Type 2 diabetes mellitus, without long-t erm current use of insulin Type 2 diabetes mellitus, without long-term current use of insulin [id number] 11/11/2019 12:00:00 AM [facility] I42.9 Cardiomyopathy Cardiomyopathy [id number] 11/11/2019 12:00: 00 AM [facility] I44.7 LBBB (left bundle branch block) LBBB (left bundle bran ch block) [id number] 11/11/2019 12:00:00 AM [facility] I44.7 Left bundle-branch block, unspecified Le ft bundle-branch block, unspecified Diagnosis 10/14/2020 10:00:54 AM [facility] I42.9 Cardiomyopathy, unspecified Cardiomyopathy, unspecifie d Diagnosis 10/14/2020 10:00:54 AM [facility] E78.49 Other hyperlipidemia Other hyperlipidemia Diagnosis 10/14/2020 10:00:54 AM [facility] E11.9 Type 2 diabetes mellitus without complic ations Type 2 diabetes mellitus without complic Diagnosis 10/14/2020 10:00:54 AM [facility] I10 Essential (primary) hypertension Essential (primary) h ypertension Diagnosis 10/14/2020 10:00:54 AM [facility] R06.00 Dyspnea, unspecified Dyspnea, unspecified Diagnosis 06/10/2020 10:58:45 AM EDT [facility] R06.09 Other forms of dyspnea Other forms of dyspnea Diagnosi s 03/09/2020 11:43:30 AM EDT [facility] R06.02 Shortness of breath Shortness of breath Diagnosis 0 02/19/2020 07:40:25 AM EDT [facility] Results ID Date Data Source [id number] 09/13/2020 02:16:00 PM EST [facility] ([facility]) Name Value Range Interpretation Code Description Data Candice rce(s) Supporting Document(s) Carcinoembryonic Ag [Mass/volume] in Serum or Plasma Laboratory wilbert t result [facility] ([facility]) ID Date Data Source [id number] 09/13/2020 02:16:00 PM EST [facility] ([facility]) Name Value Range Interpretation Code Description Data Candice rce(s) Supporting Document(s) Cholesterol [Mass/volume] in Serum or Plasma Laboratory test result [facility] ([facility]) High Density Lipoprotein Laboratory test result [facility] ([facility]) Cholesterol.total/Cholesterol in HDL [Molar ratio] in Serum or Plasma Laboratory test result [facility] ([facility]) Cholesterol in LDL/Cholesterol in HDL [Mass Ratio] in Serum or Plasma Laboratory test result [facility] ([facility]) Cholesterol in LDL [Mass/volume] in Serum or Plasma Laboratory test result [facility] ([facility]) Triglyceride [Mass/volume] in Serum or Plasma Laboratory test result [facility] ([facility]) ID Date Data Source [id number] 09/13/2020 02:16:00 PM EST [facility] ([facility]) Name Value Range Interpretation Code Description Data Candice rce(s) Supporting Document(s) Z#Other Observations Laboratory test result [facility] ([facility]) ID Date Data Source [id number] 09/13/2020 02:16:00 PM EST [facility] ([facility]) Name Value Range Interpretation Code Description Data Candice rce(s) Supporting Document(s) Hemoglobin A1c/Hemoglobin.total in Blood Laboratory test result [facility] ([facility]) ID Date Data Source [id number] 09/13/2020 02:16:00 PM EST [facility] ([facility]) Name Value Range Interpretation Code Description Data Candice rce(s) Supporting Document(s) Alanine aminotransferase [Enzymatic activity/volume] i n Serum or Plasma Laboratory test result [facility] ([facility]) Albumin [Mass/volume] in Serum or Plasma Laboratory test result [facility] ([facility]) Carbon dioxide, total [Moles/volume] in Serum or Plasma Labo ratory test result [facility] ([facility]) Calcium [Mass/volume] in Serum or Plasma Laboratory test result [facility] ([facility]) Chloride [Moles/volume] in Serum or Plasma Laboratory test result [facility] ([facility]) Creatinine [Mass/volume] in Serum or Plasma Laboratory test result [facility] ([facility]) Glucose [Mass/volume] in Serum or Plasma Laboratory test result [facility] ([facility]) Potassium [Moles/volume] in Serum or Plasma Laboratory test result [facility] ([facility]) Protein [Mass/volume] in Serum or Plasma Laboratory test result [facility] ([facility]) Alkaline phosphatase [Enzymatic activity/volume] in Se rum or Plasma Laboratory test result [facility] ([facility]) Sodium [Moles/volume] in Serum or Plasma Laboratory test result [facility] ([facility]) Aspartate aminotransferase [Enzymatic activity/volume] in Serum or Plasma Laboratory test result [facility] ([facility]) Urea nitrogen [Mass/volume] in Serum or Plasma Laboratory test result [facility] ([facility]) ID Date Data Source [id number] 09/13/2020 02:16:00 PM EST [facility] ([facility]) Name Value Range Interpretation Code Description Data Candice rce(s) Supporting Document(s) Leukocytes [#/volume] in Blood by Automated count Laboratory test res ult [facility] ([facility]) Hematocrit [Volume Fraction] of Blood by Automated count Lab oratory test result [facility] ([facility]) Hemoglobin [Mass/volume] in Blood Laboratory test result [facility] ([facility]) Erythrocytes [#/volume] in Blood by Automated count Laboratory test result [facility] ([facility]) Erythrocyte mean corpuscular hemoglobin [Entitic mass] by Automated count Laboratory test result [facility] ([facility]) Erythrocyte mean corpuscular volume [Entitic volume] b y Automated count Laboratory test result [facility] ([facility]) Erythrocyte mean corpuscular hemoglobin concentration [Mass/volume] by Automated count Laboratory test result MEDEN T ([facility]) Platelets [#/volume] in Blood by Automated count Laboratory test resu lt [facility] ([facility]) Erythrocyte distribution width [Ratio] by Automated co unt Laboratory test result [facility] ([facility]) Platelet mean volume [Entitic volume] in Blood by Roman Johnston Laboratory test result [facility] ([facility]) Neutrophils Laboratory test result M [facility]ENT ([facility]) Band form neutrophils/100 leukocytes in Body fluid by Manual count Laboratory test result [facility] ([facility]) Lymphocytes/100 leukocytes in Body fluid by Manual count Lab oratory test result [facility] ([facility]) Monocytes Laboratory test result ME [facility] ([facility]) Eosinophils/100 leukocytes in Body fluid by Manual count Lab oratory test result [facility] ([facility]) Basophils/100 leukocytes in Blood Laboratory test result [facility] ([facility]) Eosinophils [#/volume] in Blood by Automated count Laboratory test re sult [facility] ([facility]) Basophils [#/volume] in Blood by Automated count Laboratory test resu lt [facility] ([facility]) Lymphocytes [#/volume] in Blood Laboratory test result [facility] ([facility]) Monocytes [#/volume] in Blood Laboratory test result [facility] ([facility]) Neutrophils [#/volume] in Blood by Automated count Laboratory test re sult [facility] ([facility]) ID Date Data Source [id number] 09/13/2020 02:16:00 PM EST [facility] ([facility]) Name Value Range Interpretation Code Description Data Candice rce(s) Supporting Document(s) Ferritin [Mass/volume] in Serum or Plasma Laboratory test result [facility] ([facility]) ID Date Data Source [id number] 09/12/2020 03:38:00 PM EST [facility] Name Value Range Interpretation Code Description Data Candice rce(s) Supporting Document(s) SARS coronavirus 2 RNA Not Detected [facility] [place] This lab was ordered by [facility] and reported by [facility]. ID Date Data Source [id number] 11/08/2019 05:45:00 AM EST [facility] ([facility]) Name Value Range Interpretation Code Description Data Candice rce(s) Supporting Document(s) Glucose [Mass/volume] in Capillary blood by Glucometer 144 mg/dL 80-115 Above high normal [facility] ([facility]) Procedure Social History Code Duration Value Status Description Data Source(s ) Alcohol intake 10/14/2020 12:00:00 AM EST Never completed [facility] Smoking 10/14/2020 12:00:00 AM EST Former smoker completed Former smoker [facility] Smoking 10/10/2020 12:00:00 AM EST - 09/09/2004 12:00:00 AM ES T Quit completed Quit [facility] ([facility]) Vital Signs ID Date Data Source UNK Name Value Range Interpretation Code Description Data Source(s) Diastolic blood pressure 78 mm[Hg] 78 mm[Hg] [facility] Systolic blood pressure 138 mm[Hg] 138 mm[Hg] [facility] Oxygen saturation in Arterial blood by Pulse oximetry 98 % 98 % [facility] Body mass index (BMI) [Ratio] 22.00 kg/m2 22.00 kg/m2 [facility] Body weight 67.586 kg 67.586 kg [facility] Body height 175.3 cm 175.3 cm [facility] Heart rate 71 /min 71 /min [facility] [place] body weight 160 [lb_av] 160 [lb_av] [facility] T ([facility]) Oxygen saturation in Arterial blood by Pulse oximetry 99 % 99 % [facility] ([facility]) Body temperature 97.6 [degF] 97.6 [degF] [facility] ([facility]) Respiratory rate 14 /min 14 /min [facility] ( [facility]) Heart rate 50 /min 50 /min [facility] ([facility]) Body mass index (BMI) [Ratio] 21.4 kg/m2 21.4 k g/m2 [facility] ([facility]) Body weight 145.25 [lb_av] 145.25 [lb_av] [facility] T ([facility]) Body height 69 [in_i] 69 [in_i] [facility] ([facility]) 5'9" Diastolic blood pressure 88 mm[Hg] 88 mm[Hg] [facility] ([facility]) Systolic blood pressure 136 mm[Hg] 136 mm[Hg] M [facility] ([facility]) [place] body weight 160 [lb_av] 160 [lb_av] [facility] T ([facility]) Oxygen saturation in Arterial blood by Pulse oximetry 99 % 99 % [facility] ([facility]) Body temperature 97.0 [degF] 97.0 [degF] [facility] ([facility]) Respiratory rate 16 /min 16 /min [facility] ( [facility]) Heart rate 62 /min 62 /min [facility] ([facility]) Body mass index (BMI) [Ratio] 21.5 kg/m2 21.5 k g/m2 [facility] ([facility]) Body weight 145.50 [lb_av] 145.50 [lb_av] [facility] T ([facility]) Body height 69 [in_i] 69 [in_i] [facility] ([facility]) 5'9" Diastolic blood pressure 80 mm[Hg] 80 mm[Hg] [facility] ([facility]) Systolic blood pressure 118 mm[Hg] 118 mm[Hg] M [facility] ([facility]) [place] body weight 160 [lb_av] 160 [lb_av] [facility] T ([facility]) Oxygen saturation in Arterial blood by Pulse oximetry 98 % 98 % [facility] ([facility]) Body temperature 98.0 [degF] 98.0 [degF] [facility] ([facility]) Respiratory rate 18 /min 18 /min [facility] ( [facility]) Heart rate 68 /min 68 /min [facility] ([facility]) Body mass index (BMI) [Ratio] 21.9 kg/m2 21.9 k g/m2 [facility] ([facility]) Body weight 148.00 [lb_av] 148.00 [lb_av] [facility] T ([facility]) Body height 69 [in_i] 69 [in_i] [facility] 5'9" Diastolic blood pressure 80 mm[Hg] 80 mm[Hg] [facility] ([facility]) Systolic blood pressure 142 mm[Hg] 142 mm[Hg] M [facility] ([facility]) [place] body weight 160 [lb_av] 160 [lb_av] [facility] T ([facility]) Oxygen saturation in Arterial blood by Pulse oximetry 97 % 97 % [facility] ([facility]) Body temperature 96.9 [degF] 96.9 [degF] [facility] ([facility]) Respiratory rate 18 /min 18 /min [facility] ( [facility]) Heart rate 59 /min 59 /min [facility] ([facility]) Body mass index (BMI) [Ratio] 22.0 kg/m2 22.0 k g/m2 [facility] ([facility]) Body weight 149.12 [lb_av] 149.12 [lb_av] [facility] T ([facility]) Body height 69 [in_i] 69 [in_i] [facility] ([facility] 5'9" Diastolic blood pressure 68 mm[Hg] 68 mm[Hg] [facility] ([facility]) Systolic blood pressure 126 mm[Hg] 126 mm[Hg] M [facility] ([facility]) Oxygen saturation in Arterial blood by Pulse oximetry 99 % 99 % [facility] ([facility]) Body temperature 97.3 [degF] 97.3 [degF] [facility] ([facility]) Respiratory rate 18 /min 18 /min [facility] ( [facility]) Heart rate 76 /min 76 /min [facility] ([facility]) Body mass index (BMI) [Ratio] 22.7 kg/m2 22.7 k g/m2 [facility] ([facility]) Body weight 154.00 [lb_av] 154.00 [lb_av] [facility] T ([facility]) Body height 69 [in_i] 69 [in_i] [facility] ([facility]) 5'9" Diastolic blood pressure 68 mm[Hg] 68 mm[Hg] [facility] ([facility]) Systolic blood pressure 120 mm[Hg] 120 mm[Hg] M [facility] ([facility]) Body temperature 97.4 [degF] 97.4 [degF] [facility] ([facility]) Respiratory rate 18 /min 18 /min [facility] ( [facility]) Heart rate 63 /min 63 /min [facility] ([facility]) Body mass index (BMI) [Ratio] 22.9 kg/m2 22.9 k g/m2 [facility] ([facility]) Body weight 155.25 [lb_av] 155.25 [lb_av] [facility] T ([facility]) Body height 69 [in_i] 69 [in_i] [facility] ([facility]) 5'9" Diastolic blood pressure 84 mm[Hg] 84 mm[Hg] [facility] ([facility]) Systolic blood pressure 132 mm[Hg] 132 mm[facility]Hg] [facility] Oxygen saturation in Arterial blood by Pulse oximetry 99 % 99 % [facility] ([facility]) Oxygen saturation in Arterial blood by Pulse oximetry 98 % 98 % [facility] ([facility]) Body temperature 97.6 [degF] 97.6 [degF] [facility] ([facility]) Respiratory rate 18 /min 18 /min [facility] ( [facility]) Heart rate 74 /min 74 /min [facility] ([facility]) Body mass index (BMI) [Ratio] 23.2 kg/m2 23.2 k g/m2 [facility] ([facility]) Body weight 157.38 [lb_av] 157.38 [lb_av] [facility] T ([facility]) Body height 69 [in_i] 69 [in_i] [facility] ([facility]) 5'9" Diastolic blood pressure 60 mm[Hg] 60 mm[Hg] [facility] ([facility]) Systolic blood pressure 124 mm[Hg] 124 mm[Hg] M [facility] ([facility]) Oxygen saturation in Arterial blood by Pulse oximetry 98 % 98 % [facility] ([facility]) Body temperature 97.9 [degF] 97.9 [degF] [facility] ([facility]) Respiratory rate 18 /min 18 /min [facility] ( [facility]) Heart rate 69 /min 69 /min [facility] ([facility]) Body mass index (BMI) [Ratio] 23.1 kg/m2 23.1 k g/m2 [facility] ([facility]) Body weight 156.38 [lb_av] 156.38 [lb_av] [facility] T ([facility]) Body height 69 [in_i] 69 [in_i] [facility] ([facility]) 5'9" Diastolic blood pressure 60 mm[Hg] 60 mm[Hg] [facility] ([facility]) Systolic blood pressure 122 mm[Hg] 122 mm[Hg] M [facility] ([facility]) Oxygen saturation in Arterial blood by [facility]ulse oximetry 98 % 98 % [facility] Body temperature 98.6 [degF] 98.6 [degF] [facility] ([facility]) Respiratory rate 18 /min 18 /min [facility] ( [facility]) Heart rate 90 /min 90 /min [facility] ([facility]) Body mass index (BMI) [Ratio] 23.7 kg/m2 23.7 k g/m2 [facility] ([facility]) Body weight 160.25 [lb_av] 160.25 [lb_av] [facility] T ([facility]) Body height 69 [in_i] 69 [in_i] [facility] ([facility]) 5'9" Diastolic blood pressure 84 mm[Hg] 84 mm[Hg] [facility] ([facility]) Systolic blood pressure 134 mm[Hg] 134 mm[Hg] M [facility] ([facility]) Patient Treatment Plan of Care Planned Activity Planned Date Details Description Data Source (s) carvedilol 6.25 MG Oral Tablet 07/29/2020 12:00:00 AM [facility] Lisinopril 10 MG Oral Tablet 05/19/2020 12:00:00 AM EDT [facility] atorvastatin 40 MG Oral Tablet 05/19/2020 12:00:00 AM EDT [facility]
--- OUTSIDE RECORDS SUMMARY | 2020-11-02 12:34 | CCD | Continuity of Care Document ---
Author Author Blaze RODRIGUEZ DSheryl Longoria Organization Unknown Address [address] [place] [address] Phone [phone] Care Team Providers Care Manager [employer] Name Role Phone Shirley Rodriguez D.O. AUTM Problems Active Problems Provider Date Essential hypertension FAYE Polk Onset: 9 Vitamin D deficiency FAYE Polk Onset: 04/27/2019 Type 2 diabetes mellitus FAYE Polk Onset: 019 Mixed hyperlipidemia FAEY Polk Onset: 04/27/2019 Allergic rhinitis FAYE Polk [...] tab every 12 hours as needed 60tabs Shilrey Rodriguez D.O. Nystatin/Triamcinolone Acetonide 559810-2.1Unit/GM-% Cream apply a thin layer to the rash on the ch est twice daily until resolved 60gm B37.2 Brian DomingoOSheryl 12/10 Entresto 24-26mg Tablets 1 tab by mouth twice a day Isadora Domingo.OSheryl 11/09 Vitamin D (Ergocalciferol) 1.25mg (79933 Ut) Capsules 1 capsule weekly 12caps Isadora [...] F O2 % BldC Oximetry 99 % [place] Body Weight 160 lb 07/08/2020 9:18am BP Systolic 118 mmHg BP Diastolic 80 mmHg Height 69 inches 5'9" Weight 145.50 lb BMI (Body Mass Index) 21.5 kg/m2 Heart Rate 62 /min Respiratory Rate 16 /min Body Temperature 97.0 F O2 % BldC Oximetry 99 % [place] Body Weight 160 lb Results Test Acquired Date Facility Test Result H/L Range Note Laboratory test finding 09/13/2020 [place] [address] [phone] Ferritin <pending> CBC W/Auto Differential 09/13/2020 Patients [...] Provider Dx Diagnosis Office Visit 10/10/2020 9:30a [facility] Shirley Rodriguez D.Von E11.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 I42.9 Cardiomyopathy, unspecified E55.9 Vitamin D deficiency, unspec ified I10 Essential (primary) hyperten tequila E78.2 Mixed hyperlipidemia Z85.038 Personal history of malignan t neoplasm of large intestine Z87.891 Personal history of nicotine dependence Z88.0 Allergy status to penicillin Z88.1 Allergy status to other anti biotic agents Z79.899 Other emt intermediate (current) dr ug therapy Z79.82 halfway (current) use of a spirin Office Visit 07/08/2020 9:20a [facility] FAYE Polk I42.9 Cardiomyopathy, unspecified E11.65 Type 2 diabetes mellitus wit h hyperglycemia Z85.038 Personal history of malignan t neoplasm of large intestine E55.9 Vitamin D deficiency, unspec ified I10 Essential (primary) hyperten tequila E78.2 Mixed hyperlipidemia Office Visit 06/23/2020 4:10p [facility] Isadora Domingo.Von M25.512 Pain in left shoulder J20.9 Acute bronchitis, unspecifie d Assessments Date Code Description Provider 10/10/2020 E11.59 Type 2 diabetes mellitus with ot her circulatory complications Isadora Domingo.OSheryl 10/10/2020 I42.9 Cardiomyopathy, unspecified Shirley Rodriguez, D.O. 10/10/2020 E55.9 Vitamin D deficiency, unspecifie d Shirley Rodriguez D.O. 10/10/2020 I10 Essential (primary) hypertension Shirley Rodriguez D.O. 10/10/2020 E78.2 Mixed hyperlipidemia Shirley nAdre D.O. 10/10/2020 Z85.038 Personal history of other malignant neoplasm of large intestine Shirley Rodriguez D.OSheryl 10/10/2020 Z87.891 Personal history of nicotine dep endence Shirley Rodriguez D.O. 10/10/2020 Z88.0 Allergy status to penicillin Pina l Jennifer D.OSheryl 10/10/2020 Z88.1 Allergy status to other antibiot ic agents Shirley Rodriguez D.O. 10/10/2020 Z79.899 Other long-term (current) drug t herapy Shirley Rodriguez D.O. 10/10/2020 Z79.82 emt intermediate (current) use of aspir in Shirley Rodriguez [...] 01/11/2021 9:20 am - FAYE Polk at [facility] Functional Status Description No Information Available Mental Status Description No Information Available Referrals Description No Information Available
[2020-11-02] MEDS ORDERED: CLAR10CA3 PO (12:37)
[2020-11-02] MEDS ORDERED: ENTR1TAB PO (12:37)
[2020-11-02] MEDS ORDERED: NORV5TAB PO (12:37)
[2020-11-02 15:25] LABS: BASO # 0.1 10^3/uL (0.0-0.2); BASO % 0.3 % (0.0-1.0); EOS # 0.3 10^3/uL (0.0-0.5); LYMPH % 6.2 % (24.0-44.0); MEAN CORPUSCULAR HEMOGLOBIN 27.3 pg (27.0-33.0); MEAN CORPUSCULAR HGB CONC 31.6 g/dl (32.0-36.5); MEAN CORPUSCULAR VOLUME 86.4 fl (80.0-96.0); MONO # 0.8 10^3/uL (0.0-0.8); MONO % 4.8 % (2.0-8.0); NEUTROPHILS # 13.6 10^3/uL (1.5-8.5); NEUTROPHILS % 86.3 % (36.0-66.0); PLATELET COUNT, AUTOMATED 276 10^3/uL (150-450); WHITE BLOOD COUNT 15.7 10^3/uL (4.0-10.0)
[2020-11-02] MEDS ORDERED: NS 1,000 ML IV ONE (15:45)
[2020-11-02 15:50] LABS: ALBUMIN 3.8 GM/DL (3.2-5.2); ALT/SGPT 28 U/L (12-78); BILIRUBIN,DIRECT 0.2 MG/DL (0.0-0.2); BILIRUBIN,TOTAL 0.5 MG/DL (0.2-1.0); BLOOD UREA NITROGEN 23 MG/DL (7-18); CALCIUM LEVEL 9.9 MG/DL (8.8-10.2); CARBON DIOXIDE LEVEL 29 MEQ/L (21-32); CHLORIDE LEVEL 107 MEQ/L (98-107); CREATININE FOR GFR 1.21 MG/DL (0.70-1.30); GLOMERULAR FILTRATION RATE > 60.0 (>49); GLUCOSE, FASTING 104 MG/DL (70-100); LIPASE 318 U/L (73-393); POTASSIUM SERUM 4.3 MEQ/L (3.5-5.1); SODIUM LEVEL 143 MEQ/L (136-145); TOTAL PROTEIN 7.2 GM/DL (6.4-8.2)
--- OUTSIDE RECORDS SUMMARY | 2020-11-02 15:53 | CCD ---
Author Author [facility] Organization [facility] Address Unknown Phone Unavailable Care Team Providers Care Supervisor Laboratory Animal Facility Name Role Phone Kocan, J Lottie DEER FARMER Unavailable Unavailable Kocan, J Lottie DEER FARMER Unavailable Unavailable Kocan, J Lottie DEER FARMER Unavailable Unavailable Kocan, J Lottie DEER FARMER Unavailable Unavailable Kocan, J Lottie DEER FARMER Unavailable Unavailable Kocan, J Lottie DEER FARMER Unavailable Unavailable Kocan, J Lottie DEER FARMER Unavailable Unavailable Kocan, J Lottie DEER FARMER Unavailable Unavailable Kocan, J Lottie DEER FARMER Unavailable Unavailable Kocan, J Lottie DEER FARMER Unavailable Unavailable Kocan, J Lottie DEER FARMER Unavailable Unavailable Kocan, J Lottie DEER FARMER Unavailable Unavailable Kocan, J Lottie DEER FARMER Unavailable Unavailable Navjot, Kentrell PA Unavailable Unavailable [...] Unavailable Unavailable CLEMENTE-RONI, NOLAN DO Unavailable Unavailable CLEMENTE-RNOI, NOLAN DO Unavailable Unavailable CLEMENTE-RONI, NOLAN DO [...] Unavailable Unavailable CLEMENTE-RONI, NOLAN DO Unavailable Unavailable CLEMENTE-RNOI, NOLAN DO Unavailable Unavailable CLEMENTE-RONI, NOLAN DO [...] is protected by Article 27-F of the [place] [facility] Public [employer] law. If you continue you may have access to information: Regarding HIV / AIDS; Provided by facilities licensed or operated by the [facility] Office of Mental Health; or Provided by the [facility] Office for People With Developmental Disabilities. If such information is present, then the following [facility] mandated warning applies: This information has been [...] law may result in a fine or fpc sentence or both. A general authorization for the release of medical or other information is NOT sufficient authorization for further disc losure. Allergies and Adverse Reactions Type Description Substance Reaction Status Data Source(s ) Propensity to adverse reactions PENICILLINS Penicillins Ac tive [facility] Propensity to adverse reactions ERYTHROMYCIN BASE Erythromycin Base Active [facility] Family History Family Member Name Family Member Gender Family Member Status Date o f Status Description Data Source(s) Unknown Unknown Problem [facility] ) Encounters Encounter Providers Location Date Indications Data Source(s ) Outpatient Attender: Lottie GAVIN.WALTER-ALPA 2020 12:00:00 AM EST - 10/14/2020 10:39:15 AM EST [facility] Outpatient Attender: NOLAN GOMEZ DO [facility] 10/10/2020 08:30:00 AM EST [facility] ([facility] Outpatient Attender: Kentrell MCKINNEY [facility] 07/08/2020 09:20:00 AM EDT [facility] ([facility]) Outpatient Attender: NOLAN GOMEZ [facility] 06/23/2020 04:10:00 PM EDT [facility] ([facility]) Outpatient Attender: ADRIAN YUEN-SJJuan Antonio.WALTER 0 12:00:00 AM EDT - 06/10/2020 11:37:01 AM EDT [facility] Outpatient Attender: NOLAN GOMEZ DO [facility] 04/07/2020 11:20:00 AM EDT [facility] ([facility]) Outpatient Attender: ADRIAN YUEN-SJP.WALTER 03/09/2020 12:00:00 AM EDT [facility] Outpatient Referrer: ADRIAN YUEN-SJP.WALTER 0 12:00:00 AM EDT - 02/19/2020 10:49:36 AM EDT [facility] Outpatient FP 02/16/2020 08:03:15 PM EDT [facility] Outpatient Attender: ADRIAN REGALADOSJJuan Antonio.GVR 02/11/2020 12:00:00 AM EDT [facility] Outpatient Attender: Kentrell MCKINNEY [facility] 01/04/2020 09:20:00 AM EDT MED[facility] ([facility]) Outpatient Attender: NOLAN GOMEZ [facility] 12/11/2019 01:10:00 PM EDT [facility] ([facility]) Outpatient Attender: Kentrell MCKINNEY [facility] 11/24/2019 10:20:00 AM EDT MEDENT ([facility]) Outpatient Referrer: ADRIAN YUEN-SJP.WALTER 11/13/2019 12:00:00 AM EST [facility] Outpatient Attender: ADRIAN YUEN-SJP.WALTER 0 12:00:00 AM EST - 11/11/2019 03:47:46 PM EST [facility] Outpatient Attender: Kentrell MCKINNEY [facility] 11/10/2019 03:00:00 PM EST MED[facility] ([facility]) Outpatient 11/05/2019 07:55:00 PM [facility]patient 11/03/2019 09:01:12 PM [facility] Outpatient 11/03/2019 11:16:00 AM [facility] Outpatient Attender: NOLAN GOMEZ DO [facility] 09/29/2019 07:00:00 AM EST [facility] ([facility]) Medications Medication Brand Name Start Date Product Form Dose Route Admi nistrative Instructions Pharmacy Instructions Status Indications Reaction Description Data Source(s) carvedilol 6.25 MG Oral Tablet carvedilol (COREG) 6.25 MG tablet carvedilol (COREG) 6.25 MG tablet 07/29/2020 12:00:00 AM EST active Essential hypertensionCardiomyopathy, unspecified type TAKE 1 TA BLET(6.25 MG) BY MOUTH TWICE DAILY [facility] Essential hypertension Cardiomyopathy, unspecified type Shingrix Shingrix 07/08/2020 12:00:00 AM EDT SUBCUTANEOUS completed MEDENT ([facility]) 12 HR Guaifenesin 600 MG Extended Release Oral Tablet [Mucin ex] Mucinex 06/23/2020 12:00:00 AM EDT active [facility] ([facility]) atorvastatin 40 MG Oral Tablet atorvastatin (LIPITOR) 40 MG tablet atorvastatin (LIPITOR) 40 MG tablet 05/19/2020 12:00:00 AM EDT 40 mg Oral active Take 1 tablet (40 mg total) by mouth daily [facility] Lisinopril 10 MG Oral Tablet lisinopril (PRINIVIL,ZEST RIL) 10 MG tablet lisinopril (PRINIVIL,ZESTRIL) 10 MG tablet 05/19/2020 12:00:00 AM EDT 10 mg Oral active Take 1 tablet (10 mg total) by mouth 2 (two) times a day [facility] Nystatin 177072 UNT/ML / Triamcinolone Acetonide 1 MG/ ML Topical Cream Nystatin/Triamcinolone Acetonide 12/11/2019 12:00:00 AM EDT active MED[facility] ([facility]) sacubitril 24 MG / valsartan 26 MG Oral Tablet [Entresto] En tresto 11/10/2019 12:00:00 AM EST ORAL active M EDENT ([facility]) Ergocalciferol 60861 UNT Oral Capsule Vitamin D (Ergocalcife rol) 09/29/2019 12:00:00 AM EST active M EDENT ([facility]) Insurance Providers Payer name Policy type / Coverage type Policy ID Covered alliance party ID Covered alliance party's relationship to giles Policy Giles Plan Information FOR LIFE [id number] SP [id number] MEDICARE [id number] SP [id number] MEDICARE [id number] MEDICARE [id number] Ceci [id number] Ceci [id number] MEDICARE C [id number] S [id number] [place] [id number] S [id number] [place] [id number] SP [id number] [place] UNAVAILABLE S UNAVAILABLE EAST HUMANA [id number] SP [id number] Health system (2018) Health Maintenance Organization (HMO) [id number] Self [id number] Health system (2018) Health Maintenance Organization (HMO) [id number] Self [id number] Health system (2018) Health Maintenance Organization (HMO) [id number] Self [id number] Problems, Conditions, and Diagnoses Code Display Name Description Problem Type Effective Dates Data Source(s) E78.49 Other hyperlipidemia Other hyperlipidemia [id number] 11/11/2019 12:00:00 AM [facility] I10 Essential hypertension Essential hypertension [id number] 11/11/2019 12:00:00 AM [facility] E11.9 Type 2 diabetes mellitus, without long-t erm current use of insulin Type 2 diabetes mellitus, without long-term current use of insulin [id number] 11/11/2019 12:00:00 AM [facility] I42.9 Cardiomyopathy Cardiomyopathy [id number] 11/11/2019 12:00: 00 AM [facility] I44.7 LBBB (left bundle branch block) LBBB (left bundle bran ch block) [id number] 11/11/2019 12:00:00 AM [facility] I44.7 Left bundle-branch block, unspecified Le ft bundle-branch block, unspecified Diagnosis 10/14/2020 10:00:54 AM [facility] I42.9 Cardiomyopathy, unspecified Cardiomyopathy, unspecifie d Diagnosis 10/14/2020 10:00:54 AM [facility] E78.49 Other hyperlipidemia Other hyperlipidemia Diagnosis 10/14/2020 10:00:54 AM [facility] E11.9 Type 2 diabetes mellitus without complic ations Type 2 diabetes mellitus without complic Diagnosis 10/14/2020 10:00:54 AM [facility] I10 Essential (primary) hypertension Essential (primary) h ypertension Diagnosis 10/14/2020 10:00:54 AM [facility] R06.00 Dyspnea, unspecified Dyspnea, unspecified Diagnosis 06/10/2020 10:58:45 AM EDT [facility] R06.09 Other forms of dyspnea Other forms of dyspnea Diagnosi s 03/09/2020 11:43:30 AM EDT [facility] R06.02 Shortness of breath Shortness of breath Diagnosis 0 02/19/2020 07:40:25 AM EDT [facility] Results ID Date Data Source [id number] 09/13/2020 02:16:00 PM EST [facility] ([facility]) Name Value Range Interpretation Code Description Data Candice rce(s) Supporting Document(s) Carcinoembryonic Ag [Mass/volume] in Serum or Plasma Laboratory wilbert t result MEDENT ([facility]) ID Date Data Source [id number] 09/13/2020 02:16:00 PM EST [facility] ([facility]) Name Value Range Interpretation Code Description Data Candice rce(s) Supporting Document(s) Cholesterol [Mass/volume] in Serum or Plasma Laboratory test result MED[facility] ([facility]) High Density Lipoprotein Laboratory test result [facility] ([facility]) Cholesterol.total/Cholesterol in HDL [Molar ratio] in Serum or Plasma Laboratory test result [facility] ([facility]) Cholesterol in LDL/Cholesterol in HDL [Mass Ratio] in Serum or Plasma Laboratory test result [facility] ([facility]) Cholesterol in LDL [Mass/volume] in Serum or Plasma Laboratory test result [facility] ([facility]) Triglyceride [Mass/volume] in Serum or Plasma Laboratory test result [facility] ([facility]) ID Date Data Source [id number] 09/13/2020 02:16:00 PM EST [facility] ([facility]) Name Value Range Interpretation Code Description Data Candice rce(s) Supporting Document(s) Z#Other Observations Laboratory test result [facility] ([facility]) ID Date Data Source [id number] 09/13/2020 02:16:00 PM EST [facility] ([facility]) Name Value Range Interpretation Code Description Data Candice rce(s) Supporting Document(s) Hemoglobin A1c/Hemoglobin.total in Blood Laboratory test result [facility] ([facility]) ID Date Data Source [id number] 09/13/2020 02:16:00 PM EST [facility] ([facility]) Name Value Range Interpretation Code Description Data Candice rce(s) Supporting Document(s) Alanine aminotransferase [Enzymatic activity/volume] i n Serum or Plasma Laboratory test result [facility] ([facility]) Albumin [Mass/volume] in Serum or Plasma Laboratory test result [facility] ([facility]) Carbon dioxide, total [Moles/volume] in Serum or Plasma Labo ratory test result [facility] ([facility]) Calcium [Mass/volume] in Serum or Plasma Laboratory test result [facility] ([facility]) Chloride [Moles/volume] in Serum or Plasma Laboratory test result [facility] ([facility]) Creatinine [Mass/volume] in Serum or Plasma Laboratory test result [facility] ([facility]) Glucose [Mass/volume] in Serum or Plasma Laboratory test result [facility] ([facility]) Potassium [Moles/volume] in Serum or Plasma Laboratory test result [facility] ([facility]) Protein [Mass/volume] in Serum or Plasma Laboratory test result [facility] ([facility]) Alkaline phosphatase [Enzymatic activity/volume] in Se rum or Plasma Laboratory test result [facility] ([facility]) Sodium [Moles/volume] in Serum or Plasma Laboratory test result [facility] ([facility]) Aspartate aminotransferase [Enzymatic activity/volume] in Serum or Plasma Laboratory test result [facility] ([facility]) Urea nitrogen [Mass/volume] in Serum or Plasma Laboratory test result [facility] ([facility]) ID Date Data Source [id number] 09/13/2020 02:16:00 PM EST [facility] ([facility]) Name Value Range Interpretation Code Description Data Candice rce(s) Supporting Document(s) Leukocytes [#/volume] in Blood by Automated count Laboratory test res ult [facility] ([facility]) Hematocrit [Volume Fraction] of Blood by Automated count Lab oratory test result [facility] ([facility]) Hemoglobin [Mass/volume] in Blood Laboratory test result [facility] ([facility]) Erythrocytes [#/volume] in Blood by Automated count Laboratory test result [facility] ([facility]) Erythrocyte mean corpuscular hemoglobin [Entitic mass] by Automated count Laboratory test result [facility] ([facility]) Erythrocyte mean corpuscular volume [Entitic volume] b y Automated count Laboratory test result [facility] ([facility]) Erythrocyte mean corpuscular hemoglobin concentration [Mass/volume] by Automated count Laboratory test result MEDEN T ([facility]) Platelets [#/volume] in Blood by Automated count Laboratory test resu lt [facility] ([facility]) Erythrocyte distribution width [Ratio] by Automated co unt Laboratory test result [facility] ([facility]) Platelet mean volume [Entitic volume] in Blood by Roman Johnston Laboratory test result [facility] ([facility]) Neutrophils Laboratory test result M EDENT ([facility]) Band form neutrophils/100 leukocytes in Body fluid by Manual count Laboratory test result [facility] ([facility]) Lymphocytes/100 leukocytes in Body fluid by Manual count Lab oratory test result [facility] ([facility]) Monocytes Laboratory test result ME DENT ([facility]) Eosinophils/100 leukocytes in Body fluid by Manual count Lab oratory test result [facility] ([facility]) Basophils/100 leukocytes in Blood Laboratory test result [facility] ([facility]) Eosinophils [#/volume] in Blood by Automated count Laboratory test re sult [facility] ([facility]) Basophils [#/volume] in Blood by Automated count Laboratory test resu lt [facility] ([facility]) Lymphocytes [#/volume] in Blood Laboratory test result [facility] ([facility]) Monocytes [#/volume] in Blood Laboratory test result [facility] ([facility]) Neutrophils [#/volume] in Blood by Automated count Laboratory test re sult [facility] ([facility]) ID Date Data Source [id number] 09/13/2020 02:16:00 PM EST [facility] ([facility]) Name Value Range Interpretation Code Description Data Candice rce(s) Supporting Document(s) Ferritin [Mass/volume] in Serum or Plasma Laboratory test result [facility] ([facility]) ID Date Data Source [id number] 09/12/2020 03:38:00 PM EST [facility] Name Value Range Interpretation Code Description Data Candice rce(s) Supporting Document(s) SARS coronavirus 2 RNA Not Detected [facility] This lab was ordered by [facility] and reported by [facility]. ID Date Data Source [id number] 11/08/2019 05:45:00 AM EST [facility] ([facility]) Name Value Range Interpretation Code Description Data Candice rce(s) Supporting Document(s) Glucose [Mass/volume] in Capillary blood by Glucometer 144 mg/dL 80-115 Above high normal [facility] ([facility]) Procedure Social History Code Duration Value Status Description Data Source(s ) Alcohol intake 10/14/2020 12:00:00 AM EST Never completed [facility] Smoking 10/14/2020 12:00:00 AM EST Former smoker completed Former smoker [facility] Smoking 10/10/2020 12:00:00 AM EST - 09/09/2004 12:00:00 AM ES T Quit completed Quit [facility] ([facility]) Vital Signs ID Date Data Source UNK Name Value Range Interpretation Code Description Data Source(s) Diastolic blood pressure 78 mm[Hg] 78 mm[Hg] [facility] Systolic blood pressure 138 mm[Hg] 138 mm[Hg] [facility] Oxygen saturation in Arterial blood by Pulse oximetry 98 % 98 % [facility] Body mass index (BMI) [Ratio] 22.00 kg/m2 22.00 kg/m2 [facility] Body weight 67.586 kg 67.586 kg [facility] Body height 175.3 cm 175.3 cm [facility] Heart rate 71 /min 71 /min [facility] [place] body weight 160 [lb_av] 160 [lb_av] MEDEN T ([facility]) Oxygen saturation in Arterial blood by Pulse oximetry 99 % 99 % [facility] ([facility]) Body temperature 97.6 [degF] 97.6 [degF] [facility] ([facility]) Respiratory rate 14 /min 14 /min [facility] ( [facility]) Heart rate 50 /min 50 /min [facility] ([facility]) Body mass index (BMI) [Ratio] 21.4 kg/m2 21.4 k g/m2 [facility] ([facility]) Body weight 145.25 [lb_av] 145.25 [lb_av] MEDEN T ([facility]) Body height 69 [in_i] 69 [in_i] [facility] ([facility]) 5'9" Diastolic blood pressure 88 mm[Hg] 88 mm[Hg] [facility] ([facility]) Systolic blood pressure 136 mm[Hg] 136 mm[Hg] M EDENT ([facility]) [place] body weight 160 [lb_av] 160 [lb_av] MEDEN T ([facility]) Oxygen saturation in Arterial blood by Pulse oximetry 99 % 99 % [facility] ([facility]) Body temperature 97.0 [degF] 97.0 [degF] [facility] ([facility]) Respiratory rate 16 /min 16 /min [facility] ( [facility]) Heart rate 62 /min 62 /min [facility] ([facility]) Body mass index (BMI) [Ratio] 21.5 kg/m2 21.5 k g/m2 [facility] ([facility]) Body weight 145.50 [lb_av] 145.50 [lb_av] MEDEN T ([facility]) Body height 69 [in_i] 69 [in_i] [facility] ([facility]) 5'9" Diastolic blood pressure 80 mm[Hg] 80 mm[Hg] [facility] ([facility]) Systolic blood pressure 118 mm[Hg] 118 mm[Hg] M EDENT ([facility]) [place] body weight 160 [lb_av] 160 [lb_av] MEDEN T ([facility]) Oxygen saturation in Arterial blood by Pulse oximetry 98 % 98 % [facility] ([facility]) Body temperature 98.0 [degF] 98.0 [degF] [facility] ([facility]) Respiratory rate 18 /min 18 /min [facility] ( [facility]) Heart rate 68 /min 68 /min [facility] ([facility]) Body mass index (BMI) [Ratio] 21.9 kg/m2 21.9 k g/m2 [facility] ([facility]) Body weight 148.00 [lb_av] 148.00 [lb_av] MEDEN T ([facility]) Body height 69 [in_i] 69 [in_i] [facility] ([facility]) 5'9" Diastolic blood pressure 80 mm[Hg] 80 mm[Hg] [facility] ([facility]) Systolic blood pressure 142 mm[Hg] 142 mm[Hg] M EDENT ([facility]) [place] body weight 160 [lb_av] 160 [lb_av] MEDEN T ([facility]) Oxygen saturation in Arterial blood by Pulse oximetry 97 % 97 % [facility] ([facility]) Body temperature 96.9 [degF] 96.9 [degF] [facility] ([facility]) Respiratory rate 18 /min 18 /min [facility] ( [facility]) Heart rate 59 /min 59 /min [facility] ([facility]) Body mass index (BMI) [Ratio] 22.0 kg/m2 22.0 k g/m2 [facility] ([facility]) Body weight 149.12 [lb_av] 149.12 [lb_av] MEDEN T ([facility]) Body height 69 [in_i] 69 [in_i] [facility] ([facility]) 5'9" Diastolic blood pressure 68 mm[Hg] 68 mm[Hg] [facility] ([facility]) Systolic blood pressure 126 mm[Hg] 126 mm[Hg] M EDENT ([facility]) Oxygen saturation in Arterial blood by Pulse oximetry 99 % 99 % [facility] ([facility]) Body temperature 97.3 [degF] 97.3 [degF] [facility] ([facility]) Respiratory rate 18 /min 18 /min [facility] ( [facility]) Heart rate 76 /min 76 /min [facility] ([facility]) Body mass index (BMI) [Ratio] 22.7 kg/m2 22.7 k g/m2 [facility] ([facility]) Body weight 154.00 [lb_av] 154.00 [lb_av] MEDEN T ([facility]) Body height 69 [in_i] 69 [in_i] [facility] 5'9" Diastolic blood pressure 68 mm[Hg] 68 mm[Hg] [facility] ([facility]) Systolic blood pressure 120 mm[Hg] 120 mm[Hg] M EDENT ([facility]) Body temperature 97.4 [degF] 97.4 [degF] [facility] ([facility]) Respiratory rate 18 /min 18 /min [facility] ( [facility]) Heart rate 63 /min 63 /min [facility] ([facility]) Body mass index (BMI) [Ratio] 22.9 kg/m2 22.9 k g/m2 [facility] ([facility]) Body weight 155.25 [lb_av] 155.25 [lb_av] MEDEN T ([facility]) Body height 69 [in_i] 69 [in_i] [facility] ([facility]) 5'9" Diastolic blood pressure 84 mm[Hg] 84 mm[Hg] [facility] ([facility]) Systolic blood pressure 132 mm[Hg] 132 [facility] Oxygen saturation in Arterial blood by Pulse oximetry 99 % 99 % [facility] ([facility]) Oxygen saturation in Arterial blood by Pulse oximetry 98 % 98 % [facility] ([facility]) Body temperature 97.6 [degF] 97.6 [degF] [facility] ([facility]) Respiratory rate 18 /min 18 /min [facility] ( [facility]) Heart rate 74 /min 74 /min [facility] ([facility]) Body mass index (BMI) [Ratio] 23.2 kg/m2 23.2 k g/m2 [facility] ([facility]) Body weight 157.38 [lb_av] 157.38 [lb_av] MEDEN T ([facility]) Body height 69 [in_i] 69 [in_i] [facility] ([facility]) 5'9" Diastolic blood pressure 60 mm[Hg] 60 mm[Hg] [facility] ([facility]) Systolic blood pressure 124 mm[Hg] 124 mm[Hg] M EDENT ([facility]) Oxygen saturation in Arterial blood by Pulse oximetry 98 % 98 % [facility] ([facility]) Body temperature 97.9 [degF] 97.9 [degF] [facility] ([facility]) Respiratory rate 18 /min 18 /min [facility] ( [facility]) Heart rate 69 /min 69 /min [facility] ([facility]) Body mass index (BMI) [Ratio] 23.1 kg/m2 23.1 k g/m2 [facility] ([facility]) Body weight 156.38 [lb_av] 156.38 [lb_av] MEDEN T ([facility]) Body height 69 [in_i] 69 [in_i] [facility] ([facility]) 5'9" Diastolic blood pressure 60 mm[Hg] 60 mm[Hg] [facility] ([facility]) Systolic blood pressure 122 mm[Hg] 122 mm[Hg] M NIRAVENT ([facility]) Oxygen saturation in Arterial blood by [facility]ulse [facility]ximetry 98 % 98 % [facility] Body temperature 98.6 [degF] 98.6 [degF] [facility] ([facility]) Respiratory rate 18 /min 18 /min [facility] ( [facility]) Heart rate 90 /min 90 /min [facility] ([facility]) Body mass index (BMI) [Ratio] 23.7 kg/m2 23.7 k g/m2 [facility] ([facility]) Body weight 160.25 [lb_av] 160.25 [lb_av] MEDEN T ([facility]) Body height 69 [in_i] 69 [in_i] [facility] ([facility]) 5'9" Diastolic blood pressure 84 mm[Hg] 84 mm[Hg] [facility] ([facility]) Systolic blood pressure 134 mm[Hg] 134 mm[Hg] M EDENT ([facility]) Patient Treatment Plan of Care Planned Activity Planned Date Details Description Data Source (s) carvedilol 6.25 MG Oral Tablet 07/29/2020 12:00:00 AM [facility] Lisinopril 10 MG Oral Tablet 05/19/2020 12:00:00 AM EDT [facility] atorvastatin 40 MG Oral Tablet 05/19/2020 12:00:00 AM EDT [facility]
[2020-11-02 17:06] LABS: RSV AMPLIFICATION NEGATIVE (NEGATIVE)
[2020-11-02] MEDS ORDERED: ISOVUE-370 76% 100ML VIAL As Ordered ONE (17:33)
--- NOTE | 2020-11-02 18:15 | REPVR ---
PROCEDURE INFORMATION: Exam: CT Abdomen And Pelvis With Contrast Exam date and time: 11/02/2020 5:39 PM Age: 65 years old Clinical indication: Nausea and vomiting; Prior surgery; Additional info: N/v/d, HX colon cancer TECHNIQUE: Imaging protocol: Computed tomography of the abdomen and pelvis with contrast. Radiation optimization: All CT scans at this facility use at least one of these dose optimization techniques: automated exposure control; mA and/or kV adjustment per patient size (includes targeted exams where dose is matched to clinical indication); or iterative reconstruction. Contrast material: ISOVUE 370; Contrast volume: 100 ml; Contrast route: INTRAVENOUS (IV); COMPARISON: No relevant prior studies available. FINDINGS: Lungs: 4.4 mm pleural based nodule right lower lobe (series 201, image 5). Pleural based Lily fissure nodule right lower lobe (series 201, image 18) measuring 4.2 mm. 6.9 mm pleural based nodule left lower lobe (series 201, image 16) Heart: Left ventricle appears enlarged. Liver: Normal. No mass. Gallbladder and bile ducts: Normal. No calcified stones. No ductal dilation. Pancreas: Punctate calcification present in the pancreatic head Spleen: Normal. No splenomegaly. Adrenal glands: Normal. No mass. Kidneys and ureters: 4 simple cysts in the left kidney, 2 in the lower pole and 2 in the upper pole ranging in size from 3.2 cm to 1.5 cm. 1 cm simple cyst upper pole right kidney. No hydronephrosis in either kidney. Stomach and bowel: Suture line noted at the level of the sigmoid colon. Thickening noted of the gastric folds of the stomach at the level of the fundus and proximal body of the stomach. Appendix: No evidence of appendicitis. Intraperitoneal space: Unremarkable. No free air. No significant fluid collection. Vasculature: Surgical clips noted anterior and to the left of the aorta at the aortic bifurcation. Lymph nodes: Unremarkable. No enlarged lymph nodes. Urinary bladder: Unremarkable as visualized. Reproductive: Penile implant noted with reservoir positioned in the left lower quadrant. Bones/joints: Mild foraminal stenosis on the right at L5-S1. Soft tissues: Unremarkable. IMPRESSION: 1. Thickening noted of the gastric folds in the fundus and body of the stomach. Gastritis or other infiltrative disease among the diagnostic considerations. This could also be accentuated by decompression of the stomach. 2. Bilateral simple renal cysts.No further workup recommended. 3. Punctate calcification within the pancreatic head of uncertain significance. No evidence of acute pancreatitis. 4. Bilateral pulmonary nodules.For patients at low risk (minimal or absent history of smoking and of other known risk factors), no routine follow-up is indicated. For patients at high risk (history of smoking or of other known risk factors), consider optional CT Chest at 12 months. (Reference: Kenna) COMMENTS: Consistent with the [employer]'s Incidental Findings Committee white paper (J Am Александр Radiol 2018): Any incidental renal lesion less than 1 cm or classified as too small to characterize, or any incidental cystic renal lesion characterized as simple-appearing, is likely benign. No follow-up imaging is recommended for these lesions per consensus recommendations based on imaging criteria. REFERENCES: Kenna Garcia, et al. Guidelines for Management of Incidental Pulmonary Nodules Detected on CT Images: From the [employer] Society 2017. Radiology. 2017;284(1):228-243. Electronically signed by: Carmen Donis On 11/02/2020 18:16:20 PM
[2020-11-02 18:36] VITALS: BP 138/75
--- NOTE | 2020-11-03 11:41 | ED PDOC ---
Post-Departure Follow-Up ct abd/p faxed to dr rayo for fu Marychuy Johnson MD Nov 03, 2020 11:41
== END 2020-11-02 18:38 | disposition home or self-care (01) ==
LOC: M ED 12:26
DX: R19.7 Diarrhea, unspecified (principal); D72.829 Elevated white blood cell count, unspecified; E11.9 Type 2 diabetes mellitus without complications; R91.8 Other nonspecific abnormal finding of lung field; I10 Essential (primary) hypertension; E78.5 Hyperlipidemia, unspecified; C18.9 Malignant neoplasm of colon, unspecified; Z88.0 Allergy status to penicillin; Z88.1 Allergy status to other antibiotic agents; Z90.79 Acquired absence of other genital organ(s)
CPT/HCPCS: 74177; 80048; 80076; 81001; 83690; 85025; 87631; 96360; 99284; Q9967

== ENCOUNTER → 2022-03-04 | Outpatient (REF) | payer MEDICARE, OTHER ==
[~2022-03-04] MED LIST changes: +CLAR10CA3 PO; +ERGO500029 PO; +NORV5TAB PO; -VITA50005 PO
== END ==
LOC: M LAB REF 16:48
PROVIDERS: ATTEND Physician Assistant Medical
DX: R50.9 Fever, unspecified (principal)

== ENCOUNTER → 2023-11-22 | Outpatient (CLI) | payer MEDICARE, OTHER ==
[2023-11-22 09:25] LABS: BASO # 0.1 10^3/uL (0.0-0.2); EOS # 0.4 10^3/uL (0.0-0.5); EOS % 4.7 % (0.0-3.0); HEMATOCRIT 46.5 % (42.0-52.0); HEMOGLOBIN 15.3 g/dl (13.5-17.5); LYMPH # 1.8 10^3/uL (1.5-5.0); LYMPH % 22.3 % (24.0-44.0); MEAN CORPUSCULAR HEMOGLOBIN 28.3 pg (27.0-33.0); MEAN CORPUSCULAR HGB CONC 32.9 g/dl (32.0-36.5); MONO # 0.8 10^3/uL (0.0-0.8); MONO % 9.9 % (2.0-8.0); NEUTROPHILS # 5.1 10^3/uL (1.5-8.5); NEUTROPHILS % 61.7 % (36.0-66.0); PLATELET COUNT, AUTOMATED 193 10^3/uL (150-450); RED BLOOD COUNT 5.41 10^6/uL (4.30-6.10); WHITE BLOOD COUNT 8.2 10^3/uL (4.0-10.0)
[2023-11-22 09:46] LABS: URIC ACID 5.2 MG/DL (3.7-9.2)
[2023-11-22 09:47] LABS: HEMOGLOBIN A1c 9.4 % (4.0-6.0)
[2023-11-22 09:48] LABS: CREATININE, URINE 157.2 MG/DL
[2023-11-22 09:49] LABS: ALBUMIN 3.8 G/DL (3.2-5.2); ALKALINE PHOSPHATASE 148 U/L (46-116); ALT/SGPT 30 U/L (7.0-40); AST/SGOT 16 U/L (<34); BILIRUBIN,TOTAL 0.7 MG/DL (0.3-1.2); BLOOD UREA NITROGEN 18 MG/DL (9-23); CALCIUM LEVEL 9.2 MG/DL (8.3-10.6); CARBON DIOXIDE LEVEL 28 MMOL/L (20-31); CHLORIDE LEVEL 103 MMOL/L (98-107); CHOLESTEROL LEVEL 241 MG/DL (<200); CHOLESTEROL RISK RATIO 6.17 (<5); CREATININE FOR GFR 1.24 MG/DL (0.70-1.30); GLOMERULAR FILTRATION RATE > 60.0 (>49); GLUCOSE, FASTING 329 MG/DL (74-106); LDL CHOLESTEROL 163.4 MG/DL (<100); POTASSIUM SERUM 4.3 MMOL/L (3.5-5.1); SODIUM LEVEL 138 MMOL/L (136-145); TOTAL PROTEIN 7.4 G/DL (5.7-8.2); TRIGLYCERIDES LEVEL 193 MG/DL (<150)
[2023-11-22 09:51] LABS: THYROID STIMULATING HORMONE 0.661 uIU/ML (0.55-4.78); TOTAL 25(OH) VITAMIN D 35.9 NG/ML (20.0-100.0)
[2023-11-22 10:02] LABS: MAU/CREAT RATIO 330.1 MCG/MG (0.0-30.0)
== END ==
LOC: M LAB 08:20
PROVIDERS: ATTEND Family Medicine
DX: E55.9 Vitamin D deficiency, unspecified (principal); E11.59 Type 2 diabetes mellitus with other circulatory complications; I42.9 Cardiomyopathy, unspecified; E78.2 Mixed hyperlipidemia

== ENCOUNTER 2024-05-02 14:43 | Inpatient (IN) | payer MEDICARE, OTHER ==
[~2024-05-02] VITALS: Ht 175.3 cm; Wt 72.0 kg
[2024-05-02 15:58] LABS: BASO % 0.3 % (0.0-1.0); EOS % 0.2 % (0.0-3.0); HEMATOCRIT 42.8 % (42.0-52.0); HEMOGLOBIN 13.9 g/dl (13.5-17.5); LYMPH # 1.1 10^3/uL (1.5-5.0); LYMPH % 8.7 % (24.0-44.0); MEAN CORPUSCULAR HEMOGLOBIN 28.5 pg (27.0-33.0); MEAN CORPUSCULAR HGB CONC 32.5 g/dl (32.0-36.5); MEAN CORPUSCULAR VOLUME 87.9 fl (80.0-96.0); MONO # 1.2 10^3/uL (0.0-0.8); MONO % 8.9 % (2.0-8.0); NEUTROPHILS # 10.6 10^3/uL (1.5-8.5); NEUTROPHILS % 81.6 % (36.0-66.0); PLATELET COUNT, AUTOMATED 163 10^3/uL (150-450); RED BLOOD COUNT 4.87 10^6/uL (4.30-6.10)
[2024-05-02 16:25] LABS: ALBUMIN 2.9 G/DL (3.2-5.2); ALKALINE PHOSPHATASE 91 U/L (46-116); ALT/SGPT 18 U/L (7.0-40); AST/SGOT 18 U/L (<34); BILIRUBIN,DIRECT 0.2 MG/DL (<0.4); BILIRUBIN,TOTAL 0.7 MG/DL (0.3-1.2); BLOOD UREA NITROGEN 35 MG/DL (9-23); CALCIUM LEVEL 8.3 MG/DL (8.3-10.6); CARBON DIOXIDE LEVEL 21 MMOL/L (20-31); CHLORIDE LEVEL 105 MMOL/L (98-107); CK-MB VALUE MASS < 1.0 NG/ML (<3.6); CPK CREATINE PHOSPHOKINASE 72 U/L (46-171); CREATININE FOR GFR 1.62 MG/DL (0.70-1.30); GLOMERULAR FILTRATION RATE 45.3 (>49); GLUCOSE, FASTING 191 MG/DL (74-106); MB/CK RELATIVE INDEX 1.38 (< OR =4); POTASSIUM SERUM 4.4 MMOL/L (3.5-5.1); SODIUM LEVEL 134 MMOL/L (136-145); TOTAL PROTEIN 6.7 G/DL (5.7-8.2)
[2024-05-02] MEDS: NS 1,000 ML IV SCH ×2 (16:35→22:19)
[2024-05-02] MEDS: NS 500 ML IV ONE (17:11)
[2024-05-02] MEDS: ACETAMINOPHEN 325 MG TAB PO ONE (17:11)
[2024-05-02] MEDS ORDERED: LISI40TA4 PO (20:12)
[2024-05-02] MEDS ORDERED: PRES10CA2 PO (20:12)
[2024-05-02] MEDS ORDERED: VALA500T5 PO (20:12)
[2024-05-02] MEDS ORDERED: CARV25TA PO (20:12)
[2024-05-02] MEDS ORDERED: GLIP5TAB20 PO (20:12)
[2024-05-02] MEDS ORDERED: ASPI-226 PO (20:12)
[2024-05-02] MEDS ORDERED: CETI-24 PO (20:12)
[2024-05-02] MEDS ORDERED: JARD1TAB3 PO (20:12)
[2024-05-02] MEDS ORDERED: METF10004 PO (20:12)
[2024-05-02] MEDS ORDERED: AMLO2.5T3 PO (20:12)
[2024-05-02] MEDS ORDERED: MONT10TA97 PO (20:12)
[2024-05-02] MEDS ORDERED: HOME MED LIST COMPLETE! XX SCH (20:15)
[2024-05-02] MEDS ORDERED: GLUCAGON INJ 1MG VIAL SC PRN (20:45)
[2024-05-02] MEDS ORDERED: GLUCOSE 4 GM CHEW PO PRN (20:45)
[2024-05-02] MEDS ORDERED: DEXTROSE 50% 50ML SYRINGE IV PRN (20:45)
[2024-05-02 21:47] VITALS: BP 146/66; TEMP 97.9; O2SAT 95
[2024-05-02] MEDS: INSULIN LISPRO (NovoLOG) PER UNIT SC SCH (22:00)
[2024-05-02] MEDS: ASPIRIN 81MG ENTERIC TABLET PO SCH (22:18)
[2024-05-02] MEDS: ATORVASTATIN 20 MG TAB PO SCH (22:19)
[2024-05-02 23:30] VITALS: BP 110/54
[2024-05-03] MEDS: CARVedilol 12.5 MG TAB PO SCH
[2024-05-03] MEDS: CETIRIZINE (ZyrTEC) 10 MG TAB PO SCH (01:36)
[2024-05-03 04:00] VITALS: BP 121/55; TEMP 97.9; O2SAT 93; O2SAT 95
[2024-05-03 06:28] LABS: HEMATOCRIT 40.4 % (42.0-52.0); MEAN CORPUSCULAR HEMOGLOBIN 28.7 pg (27.0-33.0); MEAN CORPUSCULAR HGB CONC 32.2 g/dl (32.0-36.5); MEAN CORPUSCULAR VOLUME 89.2 fl (80.0-96.0); PLATELET COUNT, AUTOMATED 155 10^3/uL (150-450); RED BLOOD COUNT 4.53 10^6/uL (4.30-6.10)
[2024-05-03 07:00] LABS: ALBUMIN 2.7 G/DL (3.2-5.2); BILIRUBIN,TOTAL 0.6 MG/DL (0.3-1.2); CREATININE FOR GFR 1.42 MG/DL (0.70-1.30); GLOMERULAR FILTRATION RATE 52.8 (>49); POTASSIUM SERUM 3.7 MMOL/L (3.5-5.1); TOTAL PROTEIN 6.2 G/DL (5.7-8.2)
[2024-05-03] MEDS: INSULIN LISPRO (NovoLOG) PER UNIT SC SCH (07:30)
[2024-05-03] MEDS: MONTELUKAST 10 MG TAB PO SCH (09:29)
[2024-05-03] MEDS: HEPARIN SOD (PORCINE) 5000UNITS/ML 1ML VIAL/SYRINGE SC SCH (09:30)
[2024-05-03] MEDS: valACYclovir HCL 500 MG TAB PO SCH (11:20)
[2024-05-03] MEDS: guaiFENesin ER TABLET 600 MG TAB PO SCH (11:20)
[2024-05-03 11:38] VITALS: BP_SYST 159; BP_SYST 162; BP_SYST 164; BP_DIAS 77; BP_DIAS 78; BP_DIAS 84
[2024-05-03 19:53] VITALS: BP 114/48; TEMP 98.8; O2SAT 92
[2024-05-04 03:56] VITALS: BP 122/59; TEMP 98.6; O2SAT 96
[2024-05-04 06:29] LABS: BASO % 0.5 % (0.0-1.0); EOS # 0.1 10^3/uL (0.0-0.5); EOS % 1.8 % (0.0-3.0); HEMATOCRIT 39.7 % (42.0-52.0); HEMOGLOBIN 12.6 g/dl (13.5-17.5); LYMPH # 1.9 10^3/uL (1.5-5.0); LYMPH % 34.5 % (24.0-44.0); MEAN CORPUSCULAR HEMOGLOBIN 28.1 pg (27.0-33.0); MEAN CORPUSCULAR HGB CONC 31.7 g/dl (32.0-36.5); MEAN CORPUSCULAR VOLUME 88.4 fl (80.0-96.0); MONO # 0.7 10^3/uL (0.0-0.8); MONO % 13.3 % (2.0-8.0); NEUTROPHILS # 2.8 10^3/uL (1.5-8.5); NEUTROPHILS % 49.7 % (36.0-66.0); PLATELET COUNT, AUTOMATED 157 10^3/uL (150-450); RED BLOOD COUNT 4.49 10^6/uL (4.30-6.10); WHITE BLOOD COUNT 5.6 10^3/uL (4.0-10.0)
[2024-05-04 06:46] LABS: CALCIUM LEVEL 8.4 MG/DL (8.3-10.6); CREATININE FOR GFR 1.35 MG/DL (0.70-1.30); MAGNESIUM LEVEL 1.8 MG/DL (1.8-2.4); POTASSIUM SERUM 3.9 MMOL/L (3.5-5.1)
[2024-05-04 12:00] VITALS: BP 138/64; TEMP 97.9; O2SAT 95
[2024-05-04 20:02] VITALS: BP 167/79; TEMP 98.6; O2SAT 95
[2024-05-04 21:00] VITALS: O2SAT 99
[2024-05-04] MEDS ORDERED: HYDROMORPHONE HCL 0.5 MG/ 0.5 ML SYRINGE IV ONE (23:10)
[2024-05-05 03:59] VITALS: BP 142/59; TEMP 98.1; O2SAT 93
[2024-05-05 06:07] LABS: BASO % 0.6 % (0.0-1.0); EOS # 0.2 10^3/uL (0.0-0.5); EOS % 3.1 % (0.0-3.0); HEMATOCRIT 42.2 % (42.0-52.0); HEMOGLOBIN 13.8 g/dl (13.5-17.5); LYMPH % 32.1 % (24.0-44.0); MEAN CORPUSCULAR HEMOGLOBIN 28.6 pg (27.0-33.0); MEAN CORPUSCULAR HGB CONC 32.7 g/dl (32.0-36.5); MEAN CORPUSCULAR VOLUME 87.4 fl (80.0-96.0); MONO # 0.8 10^3/uL (0.0-0.8); MONO % 12.8 % (2.0-8.0); NEUTROPHILS # 3.2 10^3/uL (1.5-8.5); NEUTROPHILS % 51.1 % (36.0-66.0); PLATELET COUNT, AUTOMATED 173 10^3/uL (150-450); RED BLOOD COUNT 4.83 10^6/uL (4.30-6.10); WHITE BLOOD COUNT 6.4 10^3/uL (4.0-10.0)
[2024-05-05 06:29] LABS: CALCIUM LEVEL 8.7 MG/DL (8.3-10.6); CREATININE FOR GFR 1.3 MG/DL (0.70-1.30); GLOMERULAR FILTRATION RATE 58.4 (>49); MAGNESIUM LEVEL 1.8 MG/DL (1.8-2.4); POTASSIUM SERUM 4.2 MMOL/L (3.5-5.1)
[2024-05-05] MEDS ORDERED: MUCI600T31 PO (10:14)
[2024-05-05] MEDS ORDERED: CARV12.5 PO (10:14)
[2024-05-05] MEDS ORDERED: AMLO1TAB24 PO (10:17)
[2024-05-05 10:50] VITALS: BP 120/70
[2024-05-05 11:30] VITALS: BP 159/73; TEMP 97.7; O2SAT 96
[2024-05-06] MEDS ORDERED: amLODIPine 5 MG TAB PO SCH (09:00)
== END 2024-05-05 12:18 | disposition home health service (06) | DRG 178 ==
LOC: M ED 14:43 → M ED INP 20:45 → M MSPAV 21:47
PROVIDERS: ADMIT Student in an Organized Health Care Education/Training Program; ATTEND Internal Medicine
PROC: B246ZZZ Ultrasonography of Right and Left Heart (ICD-10-PCS; principal; 2024-05-04)
DX: U07.1 COVID-19 (principal); N17.9 Acute kidney failure, unspecified; I50.22 Chronic systolic (congestive) heart failure; I11.0 Hypertensive heart disease with heart failure; E11.9 Type 2 diabetes mellitus without complications; I25.5 Ischemic cardiomyopathy; J45.909 Unspecified asthma, uncomplicated; E78.5 Hyperlipidemia, unspecified; I95.1 Orthostatic hypotension; Z95.810 Presence of automatic (implantable) cardiac defibrillator; Z85.46 Personal history of malignant neoplasm of prostate; Z85.038 Personal history of other malignant neoplasm of large intestine; Z87.891 Personal history of nicotine dependence; Z90.49 Acquired absence of other specified parts of digestive tract; Z79.82 Long term (current) use of aspirin; Z79.84 Long term (current) use of oral hypoglycemic drugs; Z79.899 Other long term (current) drug therapy; Z88.0 Allergy status to penicillin; Z88.1 Allergy status to other antibiotic agents